=== PATIENT | female | born 1980 | race Caucasian/White ===

== ENCOUNTER 2016-05-08 01:28 | Emergency (ER) | payer SELFPAY ==
[2016-05-08 01:34] VITALS: BP 112/71
[2016-05-08] MEDS ORDERED: DIPHENHYDRAMINE HCL 50 MG/ML VIAL IV ONE (03:00)
[2016-05-08] MEDS ORDERED: NORMAL SALINE 1000 ML 1,000 ML IV ONE (03:00)
[2016-05-08] MEDS ORDERED: KETOROLAC TROMETHAMINE INJ/PF 30 MG/1 ML SDV IV ONE (03:00)
[2016-05-08] MEDS ORDERED: METHOCARBAMOL INJ/PF 1000 MG/10 ML SDV IV ONE (03:00)
[2016-05-08] MEDS ORDERED: METOCLOPRAMIDE HCL INJ/PF 10 MG/2 ML SDV IV ONE (03:00)
--- NOTE | 2016-05-08 03:02 | ER Document Report ---
ED Headache - General Chief Complaint: Headache >24 hrs old Stated Complaint: HEADACHE Time seen by provider: 03:01 Notes: Patient is a 35-year-old female that comes emergency department for chief complaint of a migraine that is present for about 5 days, she states that she's been taking Excedrin Migraine with limited success. Patient states she does have a history of migraines and has had them more frequently over the past several months, states this headache is consistent with that, states she also gets tension headaches. She reports some pain in the right side of her neck. She denies injury, fever. She states she vomited once earlier, has light sensitivity and sound sensitivity. She is currently on her menstrual cycle and started this about 4 days ago. TRAVEL OUTSIDE OF THE [place] IN LAST 30 DAYS: No - Related Data Allergies/Adverse Reactions: acetaminophen [From Vicodin] Allergy (Verified 08/24/15 21:45) codeine [Codeine] Allergy (Verified 08/24/15 21:45) hydrocodone bitartrate [From Vicodin] Allergy (Verified 08/24/15 21:45) Penicillins Allergy (Verified 08/24/15 21:45) Past Medical History - General Information source: Patient - Social History Smoking Status: Current Every Day Smoker Chew tobacco use (# tins/day): No Frequency of alcohol use: None Drug Abuse: None Lives with: Family Family History: CAD - sister of [place] at age 50 y.o. Patient has suicidal ideation: No Patient has homicidal ideation: No - Past Medical History Cardiac Medical History: Reports: Hx Coronary Artery Disease, Hx Heart Attack - x3, Hx Hypercholesterolemia, Hx Hypertension Pulmonary Medical History: Reports: Hx Bronchitis Neurological Medical History: Reports: Hx Cerebrovascular Accident - according to patient small stroke, Hx Migraine Renal/ Medical History: Reports: Hx Ectopic . Denies: Hx Peritoneal Dialysis Psychiatric Medical History: Reports: Hx Anxiety, Hx Depression Past Surgical History: Reports: Hx Gynecologic Surgery - left salpingo- Oophrectomy - Immunizations Immunizations up to date: Yes Hx Diphtheria, Pertussis, Tetanus Vaccination: Yes - UTD Review of Systems - Review of Systems Constitutional: No symptoms reported EENT: No symptoms reported Cardiovascular: No symptoms reported Respiratory: No symptoms reported Gastrointestinal: No symptoms reported Genitourinary: No symptoms reported Female Genitourinary: No symptoms reported Musculoskeletal: See HPI Skin: No symptoms reported Hematologic/Lymphatic: No symptoms reported Neurological/Psychological: See HPI Physical Exam - Vital signs Vitals: Temp Pulse Resp BP Pulse Ox 97.7 F 98 16 112/71 100 05/08/16 01:32 05/08/16 01:32 05/08/16 01:32 05/08/16 01:32 05/08/16 01:32 Interpretation: Normal - General General appearance: Anxious In distress: Mild - Patient wearing sunglasses, squinting her eyes, appears to be uncomfortable - HEENT Head: Normocephalic, Atraumatic Eyes: Normal Pupils: PERRL - Respiratory Respiratory status: No respiratory distress Chest status: Nontender Breath sounds: Normal. No: Decreased air movement, Wheezing Chest palpation: Normal - Cardiovascular Rhythm: Regular. No: Tachycardia Heart sounds: Normal auscultation, S1 appreciated, S2 appreciated Murmur: No - Abdominal Inspection: Normal Distension: No distension Bowel sounds: Normal Tenderness: Nontender. No: Tender, Guarding Organomegaly: No organomegaly - Back Back: Tender - There is tenderness in the paracervical muscles on the right side extending into the trapezius muscle, normal flexion and extension, normal range of motion, normal upper and lower extremity range of motion, normal distal neurovascular exam - Extremities General upper extremity: Normal inspection, Nontender, Normal color, Normal ROM , Normal temperature General lower extremity: Normal inspection, Nontender, Normal color, Normal ROM , Normal temperature, Normal weight bearing. No: Rodri's sign - Neurological Neuro grossly intact: Yes Cognition: Normal Orientation: AAOx4 [place] Coma Scale Eye Opening: Spontaneous Luke Coma Scale Verbal: Oriented [place] Coma Scale Motor: Obeys Commands Luke Coma Scale Total: 15 Speech: Normal Motor strength normal: LUE, RUE, LLE, RLE Sensory: Normal - Psychological Associated symptoms: Normal affect, Normal mood - Skin Skin Temperature: Warm Skin Moisture: Dry Skin Color: Normal Course - Re-evaluation Re-evalutation: Normal neurological exam, some tenderness in the paracervical muscles and trapezius muscles on the right side on initial exam, however after medications, all symptoms completely resolved, patient states her headache completely resolved, she states she just feels sleepy and she wants to go home. No concerning neurological signs, complete resolution of headache, suspect patient has a tension headache with triggered migraine. Discussed primary care follow- up, home medications, return precautions, patient states understanding and agreement. Patient has a ride home. - Vital Signs Vital signs: Temp Pulse Resp BP Pulse Ox 97.7 F 98 16 112/71 100 05/08/16 01:32 05/08/16 01:32 05/08/16 01:32 05/08/16 01:32 05/08/16 01:32 Discharge - Discharge Clinical Impression: Headache Qualifiers: Headache type: unspecified Headache chronicity pattern: acute headache Intractability: not intractable Qualified Code(s): R51 - Headache Condition: Stable Disposition: HOME, SELF-CARE Additional Instructions: Examination and symptoms, along with response to treatment, are most consistent with a tension headache that triggered a migraine. Apply heat and do gentle stretches to your left neck/cervical/trapezius muscles. Take the Robaxin muscle relaxer as prescribed. Take the Fioricet if needed for headache. Follow-up with primary care for additional management. Return to the emergency department for any concerning symptoms. Prescriptions: Butalb/Acetaminophen/Caffeine [Fioricet (50-325-40 mg) Tablet] 1 tab PO Q4HP PRN #30 tab PRN Reason: Methocarbamol [Robaxin 750 mg Tablet] 750 mg PO Q6 #20 tablet
== END 2016-05-08 05:30 | disposition home or self-care (01) ==
LOC: ER 01:28
DX: R51 Headache (principal); H53.149 Visual discomfort, unspecified; R11.10 Vomiting, unspecified; I25.10 Atherosclerotic heart disease of native coronary artery without angina pectoris; I25.2 Old myocardial infarction; I10 Essential (primary) hypertension; Z86.73 Personal history of transient ischemic attack (TIA), and cerebral infarction without residual deficits; Z88.6 Allergy status to analgesic agent; Z88.5 Allergy status to narcotic agent; Z88.0 Allergy status to penicillin
CPT/HCPCS: 99283; 96374; 96375; J1200; J2800; J1885; J2765

== ENCOUNTER 2016-08-01 23:21 | Emergency (ER) | payer SELFPAY ==
[2016-08-01 23:30] VITALS: BP 95/68
--- NOTE | 2016-08-02 17:47 | EKG REPORT ---
SEVERITY:- OTHERWISE NORMAL ECG - SINUS RHYTHM LOW VOLTAGE IN FRONTAL LEADS : Confirmed by: Kp Kaplan 02-Aug-2016 17:47:16
== END 2016-08-02 00:43 | disposition left against medical advice (07) ==
LOC: ER 23:21
DX: Z53.21 Procedure and treatment not carried out due to patient leaving prior to being seen by health care provider (principal)
CPT/HCPCS: 93005; 93010

== ENCOUNTER 2016-08-03 14:52 | Emergency (ER) | payer SELFPAY ==
[2016-08-03] MEDS ORDERED: DIAZEPAM 2 MG TABLET PO ONE (15:09)
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
[2016-08-03 15:34] LABS: ABSOLUTE EOSINOPHILS # (AUTO) 0.3 10^3/uL (0.0-0.6); ABSOLUTE LYMPHOCYTES (AUTO) 3.4 10^3/uL (0.5-4.7); ABSOLUTE MONOCYTES (AUTO) 0.6 10^3/uL (0.1-1.4); ABSOLUTE NEUT (AUTO) 6.6 10^3/uL (1.7-8.2); BASOPHILS % (AUTO) 0.4 % (0-2); EOSINOPHILS % (AUTO) 2.8 % (0-6); HEMATOCRIT 38.7 % (36.0-47.0); HGB HCT DIFFERENCE 0.3; LYMPHOCYTES % (AUTO) 30.7 % (13-45); MEAN CORPUSCULAR HEMOGLOBIN 31.2 pg (27.0-33.4); MEAN CORPUSCULAR HGB CONC 33.6 g/dL (32.0-36.0); MEAN CORPUSCULAR VOLUME 93 fl (80-97); MONOCYTES % (AUTO) 5.5 % (3-13); RED BLOOD COUNT 4.17 10^6/uL (3.72-5.28); RED CELL DISTRIBUTION WIDTH 14.5 % (11.5-14.0); SEGMENTED NEUTROPHILS % (AUTO) 60.6 % (42-78); WHITE BLOOD COUNT 10.9 10^3/uL (4.0-10.5)
[2016-08-03 15:41] LABS: APPEARANCE,URINE CLEAR; BILIRUBIN,URINE NEGATIVE (NEGATIVE); GLUCOSE, URINE NEGATIVE (NEGATIVE); KETONES,URINE NEGATIVE (NEGATIVE); LEUKOCYTE ESTERASE,URINE NEGATIVE (NEGATIVE); NITRITE,URINE NEGATIVE (NEGATIVE); PROTEIN,URINE NEGATIVE (NEGATIVE); URINE SPECIFIC GRAVITY 1.004; UROBILINOGEN,URINE NEGATIVE mg/dL (<2.0)
[2016-08-03 15:52] LABS: ALANINE AMINOTRANSFERASE 21 U/L (9-52); ALBUMIN 4.6 g/dL (3.5-5.0); ALCOHOL < 10 mg/dL (NONE DETECTED); ALKALINE PHOSPHATASE 85 U/L (38-126); ANION GAP 12 (5-19); ASPARTATE AMINO TRANSFERASE 15 U/L (14-36); BILIRUBIN,DIRECT 0.3 mg/dL (0.0-0.4); BILIRUBIN,TOTAL 0.5 mg/dL (0.2-1.3); BLOOD UREA NITROGEN 8 mg/dL (7-20); CALCIUM 9.9 mg/dL (8.4-10.2); CARBON DIOXIDE 23 mmol/L (22-30); CHLORIDE 107 mmol/L (98-107); CREATININE RESULT 0.76 mg/dL (0.52-1.25); GLUCOSE 84 mg/dL (75-110); POTASSIUM 4.6 mmol/L (3.6-5.0); SODIUM 141.6 mmol/L (137-145); TOTAL PROTEIN 7.8 g/dL (6.3-8.2)
[2016-08-03 15:59] LABS: URINE BARBITURATES SCREEN NEGATIVE; URINE METHADONE SCREEN NEGATIVE; URINE OPIATES LOW NEGATIVE; URINE PHENCYCLIDINE SCREEN NEGATIVE
[2016-08-03] MEDS ORDERED: LORAZEPAM INJ 2 MG/1 ML VIAL IM ONE (16:54)
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
[2016-08-03 19:07] VITALS: BP 100/69
--- NOTE | 2016-08-04 12:55 | EKG REPORT ---
SEVERITY:- BORDERLINE ECG - SINUS RHYTHM LOW VOLTAGE THROUGHOUT BORDERLINE T ABNORMALITIES, ANT-LAT LEADS : Confirmed by: Patito Valentino MD 04-Aug-2016 12:54:50
== END 2016-08-03 19:06 | disposition home or self-care (01) ==
LOC: ER 14:52
DX: F31.81 Bipolar II disorder (principal); F41.9 Anxiety disorder, unspecified; F32.9 Major depressive disorder, single episode, unspecified; F17.200 Nicotine dependence, unspecified, uncomplicated
CPT/HCPCS: 93005; 99284; 96372; 36415; 80307 ×4; 84703; 85025; 80053; 81001; 93010; J3490; J2060

== ENCOUNTER 2016-08-07 16:57 | Emergency (ER) | payer SELFPAY ==
[2016-08-07 17:05] VITALS: BP 108/74
--- NOTE | 2016-08-07 18:42 | ER Document Report ---
ED Medical Screen (RME) - General Chief Complaint: Anxiety Stated Complaint: ANXIETY Time Seen by Provider: 08/07/16 18:26 Mode of Arrival: Ambulatory Information source: Patient Notes: This is a 35-year-old female with a history of anxiety that presents to the emergency room with worsening anxiety in the setting of her brother being sent to skilled nursing. Patient states she is gotten worse ever since she found out that her brother in law a meth lab in the house. She apparently called the police and he was arrested. The mother is been very upset with the patient. She was given some Loli which she said did not work and she has an appointment with Dr. Rivas (her psychiatrist) tomorrow at 1:30 PM TRAVEL OUTSIDE OF THE [place] IN LAST 30 DAYS: No - HPI Onset: Last week Onset/Duration: Gradual Quality of pain: No pain Severity: None Pain Level: Denies Associated Symptoms: None. denies: Chills, Fever Exacerbated by: Denies Relieved by: Denies Similar symptoms previously: Yes Recently seen / treated by doctor: Yes - Related Data Smoking: Cigarettes Frequency of alcohol use: None Drug Abuse: None Allergies/Adverse Reactions: acetaminophen [From Vicodin] Allergy (Verified 08/07/16 17:02) codeine [Codeine] Allergy (Verified 08/07/16 17:02) hydrocodone bitartrate [From Vicodin] Allergy (Verified 08/07/16 17:02) Penicillins Allergy (Verified 08/07/16 17:02) Past Medical History - General Information source: Patient - Social History Cigarette use (# per day): Yes - Per day Chew tobacco use (# tins/day): No Frequency of alcohol use: None Drug Abuse: None Lives with: Family Family history: None - Past Medical History Cardiac Medical History: Reports: Hx Coronary Artery Disease, Hx Heart Attack - x3, Hx Hypercholesterolemia, Hx Hypertension Pulmonary Medical History: Reports: Hx Bronchitis Neurological Medical History: Reports: Hx Cerebrovascular Accident - according to patient small stroke, Hx Migraine Renal/ Medical History: Reports: Hx Ectopic . Denies: Hx Peritoneal Dialysis Psychiatric Medical History: Reports: Hx Anxiety, Hx Depression Past Surgical History: Reports: Hx Gynecologic Surgery - left salpingo- Oophrectomy - Immunizations Immunizations up to date: Yes Hx Diphtheria, Pertussis, Tetanus Vaccination: Yes - UTD Review of Systems - Review of Systems Constitutional: denies: Chills, Fever EENT: No symptoms reported Cardiovascular: No symptoms reported Respiratory: No symptoms reported Gastrointestinal: No symptoms reported Genitourinary: No symptoms reported Female Genitourinary: No symptoms reported Musculoskeletal: No symptoms reported Skin: No symptoms reported Hematologic/Lymphatic: No symptoms reported Neurological/Psychological: See HPI Physical Exam - Vital signs Vitals: Temp Pulse Resp BP Pulse Ox 98.2 F 100 14 108/74 100 08/07/16 17:02 08/07/16 17:02 08/07/16 17:02 08/07/16 17:02 08/07/16 17:02 Notes: Physical exam: GENERAL:-year-old female, alert and oriented 3, tearful, no acute distress HEAD: Atraumatic, normocephalic. EYES: Pupils equal round and reactive to light, extraocular movements intact, sclera anicteric, conjunctiva are normal. ENT: TMs normal, nares patent, oropharynx clear without exudates. Moist mucous membranes. NECK: Normal range of motion, supple without lymphadenopathy or JVD. LUNGS: Breath sounds clear to auscultation bilaterally and equal. No wheezes rales or rhonchi. HEART: Regular rate and rhythm without murmurs, rubs or gallops. ABDOMEN: Soft, normoactive bowel sounds. No tenderness to palpation. No guarding, no rebound. No masses appreciated. EXTREMITIES: Normal range of motion, no pitting or edema. No clubbing or cyanosis. NEUROLOGICAL: Cranial nerves II through XII grossly intact. Normal speech, normal gait. PSYCH: tearful, no hallucinations, no delusions, not suicidal. SKIN: Warm, Dry, normal turgor, no rashes or lesions noted. Course - Vital Signs Vital signs: Temp Pulse Resp BP Pulse Ox 98.2 F 100 14 108/74 100 08/07/16 17:02 08/07/16 17:02 08/07/16 17:02 08/07/16 17:02 08/07/16 17:02 Doctor's Discharge - Discharge Clinical Impression: Anxiety Condition: Stable Disposition: HOME, SELF-CARE Instructions: Anxiety ([facility]) Additional Instructions: Diagnosis: Anxiety acutely worsened by situation You can increase her clonazepam to 1 mg every 6 hours as needed until you follow -up with Dr. Rivas. Hold for lethargy. Continue other medicines. Up is planned with Dr. Rivas tomorrow at 130. Return to the emergency room for any thoughts of wanting to hurt herself or others.
== END 2016-08-07 18:35 | disposition home or self-care (01) ==
LOC: ER 16:57
DX: F41.9 Anxiety disorder, unspecified (principal); F17.210 Nicotine dependence, cigarettes, uncomplicated; I25.10 Atherosclerotic heart disease of native coronary artery without angina pectoris; E78.00 Pure hypercholesterolemia, unspecified; I25.2 Old myocardial infarction; Z88.6 Allergy status to analgesic agent; Z88.0 Allergy status to penicillin
CPT/HCPCS: 99283

== ENCOUNTER 2016-08-19 16:30 | Emergency (ER) | payer SELFPAY ==
[2016-08-19 18:16] LABS: ABSOLUTE BASOPHILS # (AUTO) 0.1 10^3/uL (0.0-0.2); ABSOLUTE EOSINOPHILS # (AUTO) 0.3 10^3/uL (0.0-0.6); ABSOLUTE LYMPHOCYTES (AUTO) 3.5 10^3/uL (0.5-4.7); ABSOLUTE MONOCYTES (AUTO) 0.7 10^3/uL (0.1-1.4); BASOPHILS % (AUTO) 0.6 % (0-2); EOSINOPHILS % (AUTO) 3.1 % (0-6); HEMATOCRIT 40.1 % (36.0-47.0); HEMOGLOBIN 13.6 g/dL (12.0-15.5); HGB HCT DIFFERENCE 0.7; LYMPHOCYTES % (AUTO) 33.3 % (13-45); MEAN CORPUSCULAR HEMOGLOBIN 31.1 pg (27.0-33.4); MEAN CORPUSCULAR HGB CONC 33.8 g/dL (32.0-36.0); MEAN CORPUSCULAR VOLUME 92 fl (80-97); MONOCYTES % (AUTO) 6.5 % (3-13); RED BLOOD COUNT 4.36 10^6/uL (3.72-5.28); RED CELL DISTRIBUTION WIDTH 13.9 % (11.5-14.0); SEGMENTED NEUTROPHILS % (AUTO) 56.5 % (42-78); WHITE BLOOD COUNT 10.5 10^3/uL (4.0-10.5)
[2016-08-19 18:33] LABS: ALANINE AMINOTRANSFERASE 17 U/L (9-52); ALBUMIN 4.9 g/dL (3.5-5.0); ALKALINE PHOSPHATASE 72 U/L (38-126); ANION GAP 12 (5-19); ASPARTATE AMINO TRANSFERASE 15 U/L (14-36); BILIRUBIN,DIRECT 0.3 mg/dL (0.0-0.4); BILIRUBIN,TOTAL 0.4 mg/dL (0.2-1.3); BLOOD UREA NITROGEN 8 mg/dL (7-20); CALCIUM 9.9 mg/dL (8.4-10.2); CARBON DIOXIDE 26 mmol/L (22-30); CHLORIDE 104 mmol/L (98-107); CREATININE RESULT 0.88 mg/dL (0.52-1.25); GLUCOSE 84 mg/dL (75-110); POTASSIUM 4.6 mmol/L (3.6-5.0); SODIUM 142.1 mmol/L (137-145); TOTAL PROTEIN 8.3 g/dL (6.3-8.2)
[2016-08-19 18:34] LABS: ALCOHOL < 10 mg/dL (NONE DETECTED)
[2016-08-19 18:41] LABS: APPEARANCE,URINE SLIGHTLY-CLOUDY; BILIRUBIN,URINE NEGATIVE (NEGATIVE); GLUCOSE, URINE NEGATIVE (NEGATIVE); KETONES,URINE NEGATIVE (NEGATIVE); LEUKOCYTE ESTERASE,URINE NEGATIVE (NEGATIVE); NITRITE,URINE NEGATIVE (NEGATIVE); PROTEIN,URINE NEGATIVE (NEGATIVE); URINE SPECIFIC GRAVITY 1.013; UROBILINOGEN,URINE NEGATIVE mg/dL (<2.0)
[2016-08-19 18:55] LABS: URINE BARBITURATES SCREEN NEGATIVE; URINE METHADONE SCREEN NEGATIVE; URINE OPIATES LOW NEGATIVE; URINE PHENCYCLIDINE SCREEN NEGATIVE
[2016-08-19] MEDS ORDERED: DIAZEPAM 5 MG TABLET PO ONE (19:04)
--- NOTE | 2016-08-19 19:09 | ER Document Report ---
ED Psych Disorder / Suicide - General Chief Complaint: Suicidal Ideation Stated Complaint: PSYCH PROBLEM Time Seen by Provider: 08/19/16 17:49 TRAVEL OUTSIDE OF THE [place]. IN LAST 30 DAYS: No - HPI Patient complains to provider of: Suicidal ideation Onset: This morning Associated symptoms: Anxious, Depressed, Tearful Similar symptoms previously: Yes Recently seen / treated by doctor: Yes Notes: Patient is a 35-year-old female with a history of depression and anxiety, she presents to the emergency room today complaining of depression with thoughts of suicide earlier in the day, with a brief thought to overdose on medication, patient is going through a lot of stressors recently, as she filed charges against her [id number] for assaulting her, when the police came out to arrest him he found a meth lab in his bedroom, his bedroom is in the home shared by patient and her as well as her [id number], they went to court today and patient's [id number] basically sided with her [id number] , making patient feel more stressed and overwhelmed, she states that earlier in the day she was feeling suicidal for a brief period of time, that has passed but she is still feeling overwhelmed, tearful and depressed - Related Data Allergies/Adverse Reactions: Penicillins Allergy (Verified 08/19/16 16:36) Past Medical History - General Information source: Patient - Social History Smoking Status: Current Every Day Smoker Family History: CAD - sister of [place] at age 50 y.o. Patient has suicidal ideation: Yes Patient has homicidal ideation: Yes - Past Medical History Cardiac Medical History: Reports: Hx Coronary Artery Disease, Hx Heart Attack - x3, Hx Hypercholesterolemia, Hx Hypertension Pulmonary Medical History: Reports: Hx Bronchitis Neurological Medical History: Reports: Hx Cerebrovascular Accident - according to patient small stroke, Hx Migraine Renal/ Medical History: Reports: Hx Ectopic . Denies: Hx Peritoneal Dialysis Psychiatric Medical History: Reports: Hx Anxiety, Hx Depression Past Surgical History: Reports: Hx Gynecologic Surgery - left salpingo- Oophrectomy - Immunizations Immunizations up to date: Yes Hx Diphtheria, Pertussis, Tetanus Vaccination: Yes - UTD Review of Systems - Review of Systems Constitutional: No symptoms reported EENT: No symptoms reported Cardiovascular: No symptoms reported Respiratory: No symptoms reported Gastrointestinal: No symptoms reported Genitourinary: No symptoms reported Female Genitourinary: No symptoms reported Musculoskeletal: No symptoms reported Skin: No symptoms reported Hematologic/Lymphatic: No symptoms reported Neurological/Psychological: See HPI -: Yes All other systems reviewed and negative Physical Exam - Vital signs Vitals: Temp Pulse Resp BP Pulse Ox 98.0 F 76 20 97/67 L 99 08/19/16 16:36 08/19/16 16:36 08/19/16 16:36 08/19/16 16:36 08/19/16 16:36 Interpretation: Normal - General General appearance: Appears well, Alert - HEENT Head: Normocephalic, Atraumatic Eyes: Normal Pupils: PERRL - Respiratory Respiratory status: No respiratory distress Chest status: Nontender Breath sounds: Normal Chest palpation: Normal - Cardiovascular Rhythm: Regular Heart sounds: Normal auscultation Murmur: No - Abdominal Inspection: Normal Distension: No distension Bowel sounds: Normal Tenderness: Nontender Organomegaly: No organomegaly - Back Back: Normal, Nontender - Extremities General upper extremity: Normal inspection, Nontender, Normal color, Normal ROM , Normal temperature General lower extremity: Normal inspection, Nontender, Normal color, Normal ROM , Normal temperature, Normal weight bearing. No: Rodri's sign - Neurological Neuro grossly intact: Yes Cognition: Normal Orientation: AAOx4 Luke Coma Scale Eye Opening: Spontaneous Luke Coma Scale Verbal: Oriented Luke Coma Scale Motor: Obeys Commands [place] Coma Scale Total: 15 Speech: Normal Motor strength normal: LUE, RUE, LLE, RLE Sensory: Normal - Psychological Associated symptoms: Depressed, Tearful - Skin Skin Temperature: Warm Skin Moisture: Dry Skin Color: Normal Course - Re-evaluation Re-evalutation: 08/19/16 19:07 Patient with multiple recent stressors including living situation, legal sung , strife with her [id number], as well as her [id number], she is feeling more overwhelmed, depressed, tearful, with fleeting thoughts of suicide earlier in the day today, she is tearful and slightly anxious on evaluation, agreeable to staying in the emergency room overnight to be reevaluated by mental health team in the morning 08/19/16 19:30 patient is not actively suicidal at this time, therefore I do not believe that she meets criteria for involuntary commitment, she is agreeable to staying in the emergency room overnight as a voluntary patient - Vital Signs Vital signs: Temp Pulse Resp BP Pulse Ox 98.0 F 76 20 97/67 L 99 08/19/16 16:36 08/19/16 16:36 08/19/16 16:36 08/19/16 16:36 08/19/16 16:36 - Laboratory Result Diagrams: 08/19/16 18:02 08/19/16 18:02 Laboratory results interpreted by me: 08/19/16 18:02 Total Protein 8.3 H Salicylates < 1.0 L Acetaminophen < 10 L - EKG Interpretation by Id EKG shows normal: Sinus rhythm Rate: Normal Rhythm: NSR Discharge - Discharge Clinical Impression: Suicidal ideation Depression Qualifiers: Depression Type: unspecified Qualified Code(s): F32.9 - Major depressive disorder, single episode, unspecified Disposition: PSYCH HOSP/UNIT
[2016-08-19] MEDS ORDERED: NICOTINE 14 MG/24 HR PATCH.TD24 TD ONE (20:38)
--- NOTE | 2016-08-20 09:16 | ER Document Report ---
Doctor's Note Notes: 08/20/16 09:16 I have evaluated this patient this am and has no c/o at this time. Feels all of their needs are being met and physical exam is normal. Awaiting dispositon per mental health. 08/20/16 12:49 Pt evaluated by mental health. They are recommending discharge with follow-up at [facility] this week. She has klonopin at home. Pt is not suicidal or homicidal. She is comfortable with plan. Given strict return precautions.
--- NOTE | 2016-08-20 10:17 | EKG REPORT ---
SEVERITY:- BORDERLINE ECG - SINUS ARRHYTHMIA, RATE 46-66 BORDERLINE T ABNORMALITIES, ANT-LAT LEADS : Confirmed by: Pedro Robertson MD 20-Aug-2016 10:16:44
--- NOTE | 2016-08-20 11:51 | ER Document Report ---
ED Psych Disorder / Suicide - General Mode of Arrival: Ambulatory Information source: Patient, Relative, [facility] Records TRAVEL OUTSIDE OF THE [place].S. IN LAST 30 DAYS: No - HPI Suicide Risk Factors: Depressed - Patient reports depression and anxiety symptoms Situational problems related to: Parent - strained relaltionship with mother in law Normal mood: No - slightly depressed affet Associated symptoms: Depressed Recently seen / treated by doctor: Yes - [facility], Dr. Daniel Rivas <TETO VENEGAS - Last Filed: 08/20/16 12:28> <SHARON TALBOT - Last Filed: 08/20/16 12:49> - General Chief Complaint: Suicidal Ideation Stated Complaint: PSYCH PROBLEM Time Seen by Provider: 08/20/16 09:49 Notes: Patient presents as a 35 year old female due to high anxiety and stress at home. Patient was involved in reporting her brother in law for manufacturing methamphetamine. He was subsequently arrested and remains in [facility]. Patient reports a court proceeding yesterday where her mother in law was present. Her mother in law reportedly denigrated the patient in the court room which was upsetting to the patient. Patient states that her mother in law was non communicative following the court proceeding. Patient reports that she lives with her and the mother in law. ( is brother of person incarcerated). Patient states that the entire situation has been a significant stressor in her life. Patient reports that the result of the hearing was that she and her will be required to vacate the house when her brother in law is released from [facility] - reportedly any time from a few months to a few years. She presented at the ED due to anxiety. She is being seen at [facility] in [place] where she went after the court hearing. Her prescriber and her regular counselor were both gone for the day when she arrived. She was seen by a different counselor and was advised to come to the ED. She followed up and arrived here last night. Patient denies any SI/HI or plan. She states that she was not endorsing suicide ideation upon admission and she has no thoughts to hurt herself now. She states she was suffering from high anxiety. She denies hallucinations and any psychotic processes. She presents as calm, logical, cooperative with linear thinking. She states that she feels better after a night of respite. She would like to return home with her and states that she can cope with her mother in law residing in the same household. She states there will be no animosity from either alliance party. She will be recommended to discharge and return home with an existing follow up appointment on 08/22/16 at [facility] for medication management and therapy. Collateral Information: Rafiq - - [phone]. Rafiq reports that the patient was overwhelmed after the court hearing and was verbally denigrated by his mother in court and after court. Rivas reports the situation has de-escalated and the patient is welcome home with the assurance that her mother in law is in agreement that she can return to the house without conflict. Impression/Plan: Discharge patient to home with . Patient is able to verbally contract for safety. Patient continues to deny any previous or current SI or HI or plan. She denies psychosis. Patient was distressed over court proceedings related to her brother in law manufacturing methamphetamine ( allegedly). Patient denies any SA problems or diagnosis. She denies any suicide thoughts or attempts in her lifetime. She denies and aggression or assaults in her lifetime. Patient appears to struggle with depression related to the court case and her mother in law's behavior toward her. Patient's reports that she is safe and welcome to come home and he has negotiated resolution to their conflict with his mother. Patient will keep her appointment at [facility] on 08/24/16, 9AM. Patient was provided the community resource package to include mobile crisis phone numbers and instructions on their use. (TETO VENEGAS) - Related Data Allergies/Adverse Reactions: Penicillins Allergy (Verified 08/19/16 16:36) Past Medical History - General Information source: Patient - Social History Smoking Status: Current Every Day Smoker Chew tobacco use (# tins/day): No Frequency of alcohol use: None Drug Abuse: None Family History: CAD - sister of [place] at age 50 y.o. Patient has suicidal ideation: Yes Patient has homicidal ideation: Yes - Past Medical History Cardiac Medical History: Reports: Hx Coronary Artery Disease, Hx Heart Attack - x3, Hx Hypercholesterolemia, Hx Hypertension Pulmonary Medical History: Reports: Hx Bronchitis Neurological Medical History: Reports: Hx Cerebrovascular Accident - according to patient small stroke, Hx Migraine Renal/ Medical History: Reports: Hx Ectopic . Denies: Hx Peritoneal Dialysis Psychiatric Medical History: Reports: Hx Anxiety, Hx Depression Past Surgical History: Reports: Hx Gynecologic Surgery - left salpingo- Oophrectomy - Immunizations Immunizations up to date: Yes Hx Diphtheria, Pertussis, Tetanus Vaccination: Yes - UTD <TETO VENEGAS - Last Filed: 08/20/16 12:28> Review of Systems - Review of Systems Neurological/Psychological: Depression, Suicidal ideation - denies <THEOTETO - Last Filed: 08/20/16 12:28> Course - Laboratory Result Diagrams: 08/19/16 18:02 08/19/16 18:02 <LUISFIELDTETO - Last Filed: 08/20/16 12:28> - Laboratory Result Diagrams: 08/19/16 18:02 08/19/16 18:02 <SHARON TALBOT - Last Filed: 08/20/16 12:49> - Vital Signs Vital signs: Temp Pulse Resp BP Pulse Ox 98.2 F 73 20 101/70 98 08/20/16 05:44 08/20/16 05:44 08/20/16 05:44 08/20/16 05:44 08/20/16 05:44 - Laboratory Laboratory results interpreted by me: 08/19/16 18:02 Total Protein 8.3 H Salicylates < 1.0 L Acetaminophen < 10 L Discharge <THEOTETO - Last Filed: 08/20/16 12:28> <SHARON TALBOT E - Last Filed: 08/20/16 12:49> - Discharge Clinical Impression: Depression Qualifiers: Depression Type: unspecified Qualified Code(s): F32.9 - Major depressive disorder, single episode, unspecified Condition: Good Disposition: HOME, SELF-CARE Additional Instructions: Depression Your evaluation reveals that you have mental depression. While symptoms may be vague, they often include disturbance of sleep, fatigue, loss of appetite , and general loss of interest in life. While depression may be a side effect of drugs, or a reaction to a major change in your life, many cases have no known cause. If depression is acute, and related to a major loss in your life, you can expect it to clear completely with time. If you have been depressed a long time , are prone to repeated bouts of depression or low mood, or have been thinking of suicide, get help. Depression can be treated with anti-depressant medication and counselling. Long-term depression will often take a few weeks to clear, even with appropriate medication. Follow-up care is important. Contact your physician, the hospital emergency center, crisis line, or your counsellor if you are losing control or having self-destructive thoughts. Please keep your existing appointment at [facility] on August 24, 2016 @ 9 AM. If you continue to have depressive symptoms please contact mobile crisis or return to the emergency department. Referrals: [facility] [Outside] - 08/22/16 9:00 am ()
[2016-08-20 13:09] VITALS: BP 97/62
== END 2016-08-20 13:06 | disposition home or self-care (01) ==
LOC: ER 16:30
DX: F32.9 Major depressive disorder, single episode, unspecified (principal); R45.851 Suicidal ideations; F41.9 Anxiety disorder, unspecified; F17.200 Nicotine dependence, unspecified, uncomplicated; I25.10 Atherosclerotic heart disease of native coronary artery without angina pectoris; E78.00 Pure hypercholesterolemia, unspecified; I11.0 Hypertensive heart disease with heart failure; I25.2 Old myocardial infarction; Z88.0 Allergy status to penicillin; Z86.73 Personal history of transient ischemic attack (TIA), and cerebral infarction without residual deficits
CPT/HCPCS: 36415; 80053; 80307; 81001; 84703; 85025; 93005; 93010; 99284

== ENCOUNTER 2016-09-24 16:57 | Emergency (ER) | payer SELFPAY ==
[2016-09-24 17:05] VITALS: BP 98/54
[2016-09-24] MEDS ORDERED: BENZONATATE 100 MG CAPSULE PO ONE (18:03)
--- NOTE | 2016-09-24 18:03 | ER Document Report ---
ED Flu Like - General Chief Complaint: Flu Symptoms Stated Complaint: POSSIBLE FLU LIKE SYMPTOMS Time Seen by Provider: 09/24/16 17:19 Mode of Arrival: Ambulatory Information source: Patient Notes: 36-year-old female presents to ED for "flulike symptoms. She states she has had a cough runny nose congestion. States she coughs so much she cannot lay down. States she went to her primary doctor on the and they told her she had upper respiratory infection put her on some decongestants. States her cold and cough is not getting any better. TRAVEL OUTSIDE OF THE [place].S. IN LAST 30 DAYS: No - HPI Onset: Yesterday Quality of pain: Achy Severity: Severe Pain Level: 5 Associated symptoms: Body/muscle aches, Productive cough, Rhinnorhea, Sinus pain /drainage, Sore throat Similar symptoms previously: Yes Recently seen / treated by doctor: Yes - Related Data Allergies/Adverse Reactions: Penicillins Allergy (Verified 09/24/16 17:00) Past Medical History - General Information source: Patient - Social History Smoking Status: Current Every Day Smoker Cigarette use (# per day): Yes - more than ppd Chew tobacco use (# tins/day): No Smoking Education Provided: Yes - less than 2 min Frequency of alcohol use: None Drug Abuse: None Lives with: Family Family History: CAD - sister of [place] at age 50 y.o., Hyperlipidemia, Hypertension Patient has suicidal ideation: No Patient has homicidal ideation: No - Past Medical History Cardiac Medical History: Reports: Hx Coronary Artery Disease, Hx Heart Attack - x3 according to patient but no heart cath or medications, Hx Hypercholesterolemia, Hx Hypertension Pulmonary Medical History: Reports: Hx Bronchitis EENT Medical History: Reports: Nose Neurological Medical History: Reports: Hx Cerebrovascular Accident - according to patient small stroke, Hx Migraine Endocrine Medical History: Reports: None Renal/ Medical History: Reports: Hx Ectopic Malignancy Medical History: Reports: None GI Medical History: Reports: None Musculoskeltal Medical History: Reports None Skin Medical History: Reports None Psychiatric Medical History: Reports: Hx Anxiety, Hx Bipolar Disorder, Hx Depression Traumatic Medical History: Reports: None Infectious Medical History: Reports: None Past Surgical History: Reports: Hx Gynecologic Surgery - left salpingo- Oophrectomy, Hx Myringotomy - multiple ear surgeries - Immunizations Immunizations up to date: Yes Hx Diphtheria, Pertussis, Tetanus Vaccination: Yes - MOD Review of Systems - Review of Systems Constitutional: No symptoms reported EENT: Nose discharge, Sinus discharge Cardiovascular: No symptoms reported Respiratory: Cough, Sputum Gastrointestinal: No symptoms reported Genitourinary: No symptoms reported Female Genitourinary: No symptoms reported Musculoskeletal: No symptoms reported Skin: No symptoms reported Hematologic/Lymphatic: No symptoms reported Neurological/Psychological: No symptoms reported -: Yes All other systems reviewed and negative Physical Exam - Vital signs Vitals: Temp Pulse Resp BP Pulse Ox 99.4 F 100 14 98/54 L 97 09/24/16 17:01 09/24/16 17:01 09/24/16 17:01 09/24/16 17:01 09/24/16 17:01 Interpretation: Normal - General General appearance: Appears well, Alert - HEENT Head: Normocephalic, Atraumatic Eyes: Normal Pupils: PERRL Ears: Normal External canal: Normal Tympanic membrane: Other - scars to both Sinus: Frontal, Mastoid, Tenderness Nasal: Swelling Mucous membranes: Normal Pharynx: Erythema, Post nasal drainage. No: Exudate, Peritonsillar abscess, Retropharyngeal abscess, Tonsillar hypertrophy, Potential airway comprom. Neck: Normal - Respiratory Respiratory status: No respiratory distress Chest status: Nontender Breath sounds: Rales - Right lower lobe Chest palpation: Normal - Cardiovascular Rhythm: Regular Heart sounds: Normal auscultation Murmur: No - Abdominal Inspection: Normal Distension: No distension Bowel sounds: Normal Tenderness: Nontender Organomegaly: No organomegaly - Back Back: Normal, Nontender - Extremities General upper extremity: Normal inspection, Nontender, Normal color, Normal ROM , Normal temperature General lower extremity: Normal inspection, Nontender, Normal color, Normal ROM , Normal temperature, Normal weight bearing. No: Rodri's sign - Neurological Neuro grossly intact: Yes Cognition: Normal Orientation: AAOx4 Luke Coma Scale Eye Opening: Spontaneous Luke Coma Scale Verbal: Oriented Luke Coma Scale Motor: Obeys Commands [place] Coma Scale Total: 15 Speech: Normal Motor strength normal: LUE, RUE, LLE, RLE Sensory: Normal - Psychological Associated symptoms: Normal affect, Normal mood - Skin Skin Temperature: Warm Skin Moisture: Dry Skin Color: Normal Course - Re-evaluation Re-evalutation: 09/24/16 21:03 Patient was treated with azithromycin due to the length of her cough and the fact that she is a heavy smoker with some crackles in the right base. - Vital Signs Vital signs: Temp Pulse Resp BP Pulse Ox 99.4 F 100 14 98/54 L 97 09/24/16 17:01 09/24/16 17:01 09/24/16 17:01 09/24/16 17:01 09/24/16 17:01 - Diagnostic Test Radiology reviewed: Image reviewed, Reports reviewed Discharge - Discharge Clinical Impression: Cough URI (upper respiratory infection) Qualifiers: URI type: unspecified URI Qualified Code(s): J06.9 - Acute upper respiratory infection, unspecified Condition: Stable Disposition: HOME, SELF-CARE Instructions: Family Physicians / Practices Additional Instructions: UPPER RESPIRATORY ILLNESS: You have a viral infection of the respiratory passages -- a "cold." This common infection causes nasal congestion, drainage, and often sore throat and cough. It is highly contagious. The disease usually lasts about 10 to 14 days. There is no "cure" for the viral infection -- it must run its course. If there is a complication, such as bacterial infection in the nose, sinuses, middle ear, or bronchial tubes, antibiotics may be required. The antibiotics won't affect the virus. Drink plenty of fluids. A humidifier may help. An expectorant medication or decongestant may make you more comfortable. Use acetaminophen or ibuprofen for fever or aches. See the doctor if fever persists over two days, if there is any significant worsening of your symptoms, or if you simply fail to improve as expected. Azithromycin Azithromycin (Zithromax) is a broad spectrum antibiotic in the same class as erythromycin. It can treat a variety of bacterial infections, but is most frequently used for respiratory infections. Azithromycin is extremely long-lasting. It accumulates in body tissues and continues to kill bacteria for many days. In order to improve absorption, Azithromycin should be taken at least one hour before or two hours after a meal. It does not have the same strong tendency to upset the stomach as erythromycin and is usually very well tolerated. Patients who have had a rash or other true allergic reactions to erythromycin should not take this medication. Call if you develop gastrointestinal distress, severe diarrhea, rash, hives, itching, or shortness of breath. COUGH-SUPPRESSANT & EXPECTORANT MEDICATION: You are to use a cough medication as needed for relief of symptoms. This medicine is a combination of an expectorant (to make the mucous thinner and more easily "coughed up") and a cough suppressant (to reduce the frequency of coughing). The cough-suppressant medicine is related to narcotics. You may experience mild nausea and sleepiness. Some patients who are very sensitive to narcotics may have stomach pain from this medicine. Taking the medicine with food reduces these side effects. Do not drive or work with machinery until you know how this medicine affects you. The expectorant should have no side effects. Iodine-containing expectorants (such as organidin) should not be taken by persons with active thyroid disease unless approved by your doctor. Call the doctor if you develop shortness of breath, hives, rash, itching, lightheadedness, or severe nausea and vomiting. SMOKING: If you smoke, you should stop smoking. The tar and chemicals in cigarette smoke are harmful. Smoking has been shown to cause: emphysema chronic bronchitis lung cancer mouth and throat cancer stomach and pancreas cancer premature aging defects In addition, smoking increases ear and lung infections in children of smokers. FOLLOW-UP CARE: If you have been referred to a physician for follow-up care, call the physician s office for an appointment as you were instructed or within the next two days. If you experience worsening or a significant change in your symptoms, notify the physician immediately or return to the Emergency Department at any time for re-evaluation. Prescriptions: Benzonatate [Tessalon Perles 100 mg Capsule] 100 mg PO Q8HP PRN #14 capsule PRN Reason: Azithromycin [Zithromax 250 mg Tablet] 250 mg PO ASDIR PRN #6 tablet PRN Reason: Forms: Smoking Cessation Education
--- NOTE | 2016-09-24 18:19 | RADIOLOGY REPORT (SQ) ---
EXAM DESCRIPTION: CHEST PA/LAT COMPLETED DATE/TIME: 09/24/2016 6:11 pm REASON FOR STUDY: cough congestion COMPARISON: 03/09/2015 EXAM PARAMETERS: NUMBER OF VIEWS: two views TECHNIQUE: Digital Frontal and Lateral radiographic views of the chest acquired. RADIATION DOSE: NA LIMITATIONS: none FINDINGS: LUNGS AND PLEURA: No opacities, masses or pneumothorax. No pleural effusion. MEDIASTINUM AND HILAR STRUCTURES: No masses or contour abnormalities. HEART AND VASCULAR STRUCTURES: Heart normal size. No evidence for failure. BONES: No acute findings. HARDWARE: None in the chest. OTHER: No other significant finding. IMPRESSION: NO SIGNIFICANT RADIOGRAPHIC FINDING IN THE CHEST. TECHNICAL DOCUMENTATION: JOB ID: [id number] [employer]- All Rights Reserved
== END 2016-09-24 19:03 | disposition home or self-care (01) ==
LOC: ER 16:57 → EEVIPCON 16:57 → ER 19:03
DX: J06.9 Acute upper respiratory infection, unspecified (principal); F17.210 Nicotine dependence, cigarettes, uncomplicated; I25.10 Atherosclerotic heart disease of native coronary artery without angina pectoris; E78.00 Pure hypercholesterolemia, unspecified; I10 Essential (primary) hypertension; I25.2 Old myocardial infarction; Z88.0 Allergy status to penicillin
CPT/HCPCS: 71020; 99283

== ENCOUNTER 2016-11-10 15:55 | Emergency (ER) | payer SELFPAY ==
[2016-11-10 16:09] VITALS: BP 97/55
[2016-11-10] MEDS ORDERED: DIPH/PERTUSS(ACELL)/TETANUS VAC/PF 0.5 ML SYR (>=10YO) IM ONE (16:12)
[2016-11-10] MEDS ORDERED: IBUPROFEN 600 MG TABLET PO ONE (16:13)
--- NOTE | 2016-11-10 16:13 | ER Document Report ---
ED General - General Chief Complaint: Laceration Stated Complaint: LACERATION TO LEFT FOREARM Time Seen by Provider: 11/10/16 16:11 Mode of Arrival: Ambulatory Information source: Patient Notes: 36 yr old female presents with complaints of left forearm abrasion. Pt denies any fevers or chills, notes she fell and hit a flower pot. Pt unsure of tetanus status. TRAVEL OUTSIDE OF THE [place] IN LAST 30 DAYS: No - HPI Onset: Just prior to arrival Onset/Duration: Sudden Quality of pain: Achy Severity: Mild Pain Level: 1 Associated symptoms: None Exacerbated by: Denies Relieved by: Denies Similar symptoms previously: No Recently seen / treated by doctor: No - Related Data Allergies/Adverse Reactions: Penicillins Allergy (Verified 11/10/16 16:07) Past Medical History - Social History Smoking Status: Current Every Day Smoker Cigarette use (# per day): Yes Chew tobacco use (# tins/day): No Smoking Education Provided: No Frequency of alcohol use: None Drug Abuse: None Family History: CAD - sister of [place] at age 50 y.o., Hyperlipidemia, Hypertension - Past Medical History Cardiac Medical History: Reports: Hx Coronary Artery Disease, Hx Heart Attack - x3 according to patient but no heart cath or medications, Hx Hypercholesterolemia, Hx Hypertension Pulmonary Medical History: Reports: Hx Bronchitis Neurological Medical History: Reports: Hx Cerebrovascular Accident - according to patient small stroke, Hx Migraine Renal/ Medical History: Reports: Hx Ectopic . Denies: Hx Peritoneal Dialysis Psychiatric Medical History: Reports: Hx Anxiety, Hx Bipolar Disorder, Hx Depression Past Surgical History: Reports: Hx Gynecologic Surgery - left salpingo- Oophrectomy, Hx Myringotomy - multiple ear surgeries - Immunizations Immunizations up to date: Yes Hx Diphtheria, Pertussis, Tetanus Vaccination: Yes - UTD Review of Systems - Review of Systems Notes: REVIEW OF SYSTEMS: CONSTITUTIONAL : Denies fever, chills, or sweats. Denies recent illness. EENT: Denies eye, ear, throat, or mouth pain or symptoms. Denies nasal or sinus congestion or discharge. Denies throat, tongue, or mouth swelling or difficulty swallowing. CARDIOVASCULAR: Denies chest pain. Denies palpitations or racing or irregular heart beat. Denies ankle edema. RESPIRATORY: Denies cough, cold, or chest congestion. Denies shortness of breath, difficulty breathing, or wheezing. GASTROINTESTINAL: Denies abdominal pain or distention. Denies nausea, vomiting , or diarrhea. Denies blood in vomitus, stools, or per rectum. Denies black, tarry stools. Denies constipation. GENITOURINARY: Denies difficulty urinating, painful urination, burning, frequency, blood in urine, or discharge. FEMALE GENITOURINARY: Denies vaginal bleeding, heavy or abnormal periods, irregular periods. Denies vaginal discharge or odor. MUSCULOSKELETAL: Denies back or neck pain or stiffness. Denies joint pain or swelling. SKIN: abrasion of forearm HEMATOLOGIC : Denies easy bruising or bleeding. LYMPHATIC: Denies swollen, enlarged glands. NEUROLOGICAL: Denies confusion or altered mental status. Denies passing out or loss of consciousness. Denies dizziness or lightheadedness. Denies headache. Denies weakness or paralysis or loss of use of either side. Denies problems with gait or speech. Denies sensory loss, numbness, or tingling. Denies seizures. PSYCHIATRIC: Denies anxiety or stress. Denies depression, suicidal ideation, or homicidal ideation. ALL OTHER SYSTEMS REVIEWED AND NEGATIVE. PHYSICAL EXAMINATION: GENERAL: Well-appearing, well-nourished and in no acute distress. HEAD: Atraumatic, normocephalic. EYES: Pupils equal round and reactive to light, extraocular movements intact, conjunctiva are normal. ENT: Nares patent, oropharynx clear without exudates. Moist mucous membranes. NECK: Normal range of motion, supple without lymphadenopathy LUNGS: Breath sounds clear to auscultation bilaterally and equal. No wheezes rales or rhonchi. HEART: Regular rate and rhythm without murmurs ABDOMEN: Soft, nontender, nondistended abdomen. No guarding, no rebound. No masses appreciated. Female : deferred Musculoskeletal: Normal range of motion, no pitting or edema. No cyanosis. NEUROLOGICAL: Cranial nerves grossly intact. Normal speech, normal gait. Normal sensory, motor exams PSYCH: Normal mood, normal affect. SKIN: superifical abrasion 6 cm, no contamination , full rom of the finger Dictation was performed using [employer] voice recognition software Physical Exam - Vital signs Vitals: Temp Pulse Resp BP Pulse Ox 98.3 F 85 18 97/55 L 96 11/10/16 16:08 11/10/16 16:08 11/10/16 16:08 11/10/16 16:08 11/10/16 16:08 Course - Re-evaluation Re-evalutation: 11/10/16 16:20 Abrasion noted cleansed extensively dressing placed otherwise patient looks well is in no distress will be discharged home After performing a Medical Screening Examination, I estimate there is LOW risk for OPEN FRACTURE, COMPARTMENT SYNDROME, TENDON RUPTURE, ACUTE NEUROVASCULAR INJURY, or RETAINED FOREIGN BODY, thus I consider the discharge disposition reasonable. Also, there is no evidence or peritonitis, sepsis, or toxicity. I have reevaluated this patient multiple times and no significant life threatening changes are noted. The patient and I have discussed the diagnosis and risks, and we agree with discharging home with close follow-up with the understanding that symptoms and presentations can change. We also discussed returning to the Emergency Department immediately if new or worsening symptoms occur. We have discussed the symptoms which are most concerning (e.g., changing or worsening pain, fever, numbness, weakness, cool or painful digits) that necessitate immediate return. - Vital Signs Vital signs: Temp Pulse Resp BP Pulse Ox 98.3 F 85 18 97/55 L 96 11/10/16 16:08 11/10/16 16:08 11/10/16 16:08 11/10/16 16:08 11/10/16 16:08 Discharge - Discharge Clinical Impression: Abrasion of left forearm Qualifiers: Encounter type: initial encounter Qualified Code(s): S50.812A - Abrasion of left forearm, initial encounter Condition: Stable Disposition: HOME, SELF-CARE Instructions: Antibiotic Ointment Protection ([facility]), Laceration Care ([facility]), Soap Cleansing ([facility]) Additional Instructions: Follow up with your physician tomorrow for further care or return to the ED IMMEDIATELY if symptoms worsen or new concerns occur. If you cannot afford to follow up with your primary care physician a list of low cost clinics have been provided at the end of your discharge papers as well.
== END 2016-11-10 16:36 | disposition home or self-care (01) ==
LOC: ER 15:55
DX: S50.812A Abrasion of left forearm, initial encounter (principal); F17.210 Nicotine dependence, cigarettes, uncomplicated; W18.30XA Fall on same level, unspecified, initial encounter; E78.00 Pure hypercholesterolemia, unspecified; I10 Essential (primary) hypertension; I25.10 Atherosclerotic heart disease of native coronary artery without angina pectoris; Z88.0 Allergy status to penicillin; I25.2 Old myocardial infarction; Z23 Encounter for immunization
CPT/HCPCS: 90471; 90715; 99282

== ENCOUNTER → 2016-11-12 | Outpatient (CLI) | payer OTHER ==
[2016-11-12 15:09] LABS: ABSOLUTE BASOPHILS # (AUTO) 0.1 10^3/uL (0.0-0.2); ABSOLUTE EOSINOPHILS # (AUTO) 0.3 10^3/uL (0.0-0.6); ABSOLUTE MONOCYTES (AUTO) 0.6 10^3/uL (0.1-1.4); ABSOLUTE NEUT (AUTO) 6.9 10^3/uL (1.7-8.2); BASOPHILS % (AUTO) 0.6 % (0-2); EOSINOPHILS % (AUTO) 3.2 % (0-6); HEMATOCRIT 35.5 % (36.0-47.0); HEMOGLOBIN 12.5 g/dL (12.0-15.5); LYMPHOCYTES % (AUTO) 27.6 % (13-45); MEAN CORPUSCULAR HGB CONC 35.1 g/dL (32.0-36.0); MEAN CORPUSCULAR VOLUME 88 fl (80-97); MONOCYTES % (AUTO) 5.7 % (3-13); RED BLOOD COUNT 4.02 10^6/uL (3.72-5.28); RED CELL DISTRIBUTION WIDTH 14.6 % (11.5-14.0); SEGMENTED NEUTROPHILS % (AUTO) 62.9 % (42-78); WHITE BLOOD COUNT 10.9 10^3/uL (4.0-10.5)
[2016-11-12 15:34] LABS: ALANINE AMINOTRANSFERASE 17 U/L (9-52); ALBUMIN 4.3 g/dL (3.5-5.0); ALKALINE PHOSPHATASE 73 U/L (38-126); ANION GAP 9 (5-19); ASPARTATE AMINO TRANSFERASE 14 U/L (14-36); BILIRUBIN,DIRECT 0.4 mg/dL (0.0-0.4); BILIRUBIN,TOTAL 0.4 mg/dL (0.2-1.3); BLOOD UREA NITROGEN 9 mg/dL (7-20); CALCIUM 9.5 mg/dL (8.4-10.2); CARBON DIOXIDE 26 mmol/L (22-30); CHLORIDE 105 mmol/L (98-107); CHOLESTEROL 212.15 mg/dL (0-200); Direct HDL 51 mg/dL (>40); GLUCOSE 91 mg/dL (75-110); POTASSIUM 4.3 mmol/L (3.6-5.0); SODIUM 139.7 mmol/L (137-145); TOTAL PROTEIN 7.1 g/dL (6.3-8.2); TRIGLYCERIDES 171 mg/dL (<150)
[2016-11-12 15:45] LABS: DIRECT LDL 148 mg/dL (<100)
[2016-11-12 15:46] LABS: VLDL CHOLESTEROL 34.2 mg/dL (10-31)
== END ==
LOC: CCC 14:29
DX: J06.9 Acute upper respiratory infection, unspecified (principal)
CPT/HCPCS: 36415; 80053; 80061; 83036; 84443; 85025

== ENCOUNTER 2017-01-27 19:21 | Emergency (ER) | payer OTHER ==
[2017-01-27 19:39] VITALS: BP 103/65
== END 2017-01-27 22:20 | disposition left against medical advice (07) ==
LOC: ER 19:21
DX: Z53.21 Procedure and treatment not carried out due to patient leaving prior to being seen by health care provider (principal)

== ENCOUNTER 2017-02-06 08:41 | Emergency (ER) | payer SELFPAY ==
[2017-02-06] MEDS ORDERED: MINERAL OIL ENEMA 133 ML PR ONE (09:21)
[2017-02-06] MEDS ORDERED: ONDANSETRON 4 MG TAB.RAPDIS PO ONE (09:21)
--- NOTE | 2017-02-06 09:22 | ER Document Report ---
ED GI/ - General Chief Complaint: Constipation Stated Complaint: RECTAL BLEEDING Time Seen by Provider: 02/06/17 09:06 Notes: Patient is a 36 year old female who presents to the ED complaining of constipation with firm BM this am with BRBPR. Patient states she noticed it on the toilet paper when she wiped. Denies lightheadedness, dizzy. Admits to mild nausea without vomiting. Admits to bloating but no focal abdominal pain. Tolerating PO without difficulty. Has a history of constipation over the past three years but has never discussed it with her [facility] at [facility]. TRAVEL OUTSIDE OF THE [place] IN LAST 30 DAYS: No - Related Data Allergies/Adverse Reactions: Penicillins Allergy (Verified 02/06/17 08:41) Past Medical History - Social History Smoking Status: Current Every Day Smoker Family History: CAD - sister of [place] at age 50 y.o., Hyperlipidemia, Hypertension - Past Medical History Cardiac Medical History: Reports: Hx Coronary Artery Disease, Hx Heart Attack - x3 according to patient but no heart cath or medications, Hx Hypercholesterolemia, Hx Hypertension Pulmonary Medical History: Reports: Hx Bronchitis Neurological Medical History: Reports: Hx Cerebrovascular Accident - according to patient small stroke, Hx Migraine Renal/ Medical History: Reports: Hx Ectopic . Denies: Hx Peritoneal Dialysis Psychiatric Medical History: Reports: Hx Anxiety, Hx Bipolar Disorder, Hx Depression Past Surgical History: Reports: Hx Gynecologic Surgery - left salpingo- Oophrectomy, Hx Myringotomy - multiple ear surgeries - Immunizations Immunizations up to date: Yes Hx Diphtheria, Pertussis, Tetanus Vaccination: Yes - UTD Physical Exam - Vital signs Vitals: Temp Pulse Resp BP Pulse Ox 98.5 F 88 14 105/72 100 02/06/17 08:45 02/06/17 08:45 02/06/17 08:45 02/06/17 08:45 02/06/17 08:45 Course - Re-evaluation Re-evalutation: 02/06/17 12:28 Presentation of a very well-appearing woman in no acute distress. Abdominal exam is completely benign without any focal right lower quadrant or right upper quadrant abdominal tenderness. Patient is tolerating oral intake without difficulty and does not appear clinically dehydrated on examination. I do not suspect an acute appendicitis, Meckel's diverticulum, or intussusception based on exam, vitals and history. Patient provides a history consistent with constipation. Patient will be started on MiraLAX at increasing doses and recommended to follow closely with their primary panel beater. Return precautions have been discussed at length with the patient and family - Vital Signs Vital signs: Temp Pulse Resp BP Pulse Ox 98.5 F 88 14 105/72 100 02/06/17 08:45 02/06/17 08:45 02/06/17 08:45 02/06/17 08:45 02/06/17 08:45 Discharge - Discharge Clinical Impression: Constipation Qualifiers: Constipation type: chronic idiopathic constipation Qualified Code(s): K59.04 - Chronic idiopathic constipation Condition: Good Disposition: HOME, SELF-CARE Additional Instructions: ABDOMINAL PAIN: There are many causes of abdominal pain. Pain can mean a serious problem requiring surgery (such as appendicitis). It can also be an innocent problem that goes away on its own (such as a viral infection). Often, time must pass to determine the cause of pain. The physician does not feel that hospitalization is necessary, at present. Things may change within the next 24 hours. Call the doctor or come back for re- examination if any problems occur, such as: (1) Pain that becomes more severe, steady, or becomes concentrated in one specific area. Also, pain that is more severe with movement or coughing. (2) Vomiting that persists or becomes more frequent. (3) Blood in the vomitus, urine, or bowel movements. Blood in the stool may have a tarry or black appearance. (4) Shaking chills or fever greater than 100 degrees F. (5) The abdomen becomes more distended or swollen. (6) Bowel movements cease. (7) Failure to improve as expected. NORMAL EXAM AND WORKUP: At this time, your examination and workup show no significant abnormality. No significant abnormal physical findings are noted. All laboratory, EKG, and imaging (x-ray, CT scans, ultrasound) studies that were ordered show no significant abnormality. Although your examination and all studies that were ordered showed no significant abnormal finding, there are no examinations and no studies that are 100% accurate. There is always the possibility that some abnormality could exist and not be detected with physical examination or within the limits and capabilities of laboratory and other studies. You should return or follow up as you were instructed on your visit today for further evaluation if your symptoms do not resolve. CONSTIPATION: Constipation is a common problem. It is especially likely as you get older. Constipation is a common cause of abdominal pain, but sometimes causes no symptoms at all. Causes of constipation include certain medications, dehydration, diets, inactivity, and low-fiber intake. Rarely, it can be a symptom of underlying disease. The physician has evaluated you for this. Avoid constipation by eating a diet high in fiber, fruits, and vegetables. Drink plenty of liquids. Get regular exercise. If possible, avoid constipating medicines like narcotic pain medication. Some vitamin tablets can cause constipation. Stool softeners may be needed for difficult cases. An excellent stool softener is Konsyl which is available at [employer], and [employer]. Just add a teaspoon to a glass of pineapple or orange juice daily or twice a day if needed. Laxatives are useful for occasional constipation. You should use them only when necessary. Too-frequent use can make your bowels dependent on them. Some over the counter laxatives available without prescription are: Milk of Magnesia, 1-2 tablespoons twice a day Dulcolax, 5 mg pill or 10 mg suppository. Citrate of Magnesia, 4-5 ounces a day for a day or two For acute constipation, Fleet's Enemas and Dulcolax suppositories are helpful. Chronic, assistant terminal manager use of laxatives or enemas is not a good idea. Your bowel may become dependant on them. You do not need to have a bowel movement every day. Many people do fine with a bowel movement every three or four days. You should call your doctor or return for re-evaluation if you pass blood in the stool, or if you develop fever or increasing abdominal pain. FOLLOW-UP CARE: If you have been referred to a physician for follow-up care, call the physician s office for an appointment as you were instructed or within the next two days. If you experience worsening or a significant change in your symptoms, notify the physician immediately or return to the Emergency Department at any time for re-evaluation. Referrals: [facility] [NO LOCAL MD] - Follow up as needed
--- NOTE | 2017-02-06 10:08 | RADIOLOGY REPORT (SQ) ---
EXAM DESCRIPTION: ACUTE ABDOMEN SERIES COMPLETED DATE/TIME: 02/06/2017 10:00 am REASON FOR STUDY: constipation, nausea COMPARISON: CT abdomen pelvis 12/14/2012 Two-view chest 09/24/2016 NUMBER OF VIEWS: Three views. TECHNIQUE: Frontal chest, supine abdomen and upright abdomen radiographic images acquired. LIMITATIONS: None. FINDINGS: CHEST: Lungs clear of infiltrates. No pleural effusion or pneumothorax. Cardiac silhouet te size, louie unremarkable. FREE AIR: None. No abnormal gas collections. BOWEL GAS PATTERN: Nonobstructive pattern. No dilated loops or air fluid levels. CALCIFICATIONS: No suspicious calcifications. HARDWARE: None in the abdomen. SOFT TISSUES: No gross mass or suggestion of organomegaly. BONES: No acute fracture. No worrisome bone lesions. OTHER: No other significant finding. IMPRESSION: NO RADIOGRAPHIC EVIDENCE FOR ACUTE ABDOMINAL DISEASE. TECHNICAL DOCUMENTATION: JOB ID: [id number] [employer]- All Rights Reserved
[2017-02-06] MEDS ORDERED: MINERAL OIL 30 ML UDCUP PR ONE (11:43)
[2017-02-06 12:49] VITALS: BP 96/56
== END 2017-02-06 12:51 | disposition home or self-care (01) ==
LOC: ER 08:41
DX: K59.04 Chronic idiopathic constipation (principal); R42 Dizziness and giddiness; R11.0 Nausea; R14.0 Abdominal distension (gaseous); I25.2 Old myocardial infarction
CPT/HCPCS: 99283; 82272; 74022; S0119; J3490 ×2

== ENCOUNTER 2017-03-03 11:12 | Emergency (ER) | payer SELFPAY ==
[2017-03-03] MEDS ORDERED: IBUPROFEN 600 MG TABLET PO ONE (12:46)
--- NOTE | 2017-03-03 13:05 | ER Document Report ---
ED Extremity Problem, Upper - General Chief Complaint: Shoulder Pain Stated Complaint: SHOULDER PAIN Time Seen by Provider: 03/03/17 12:34 Mode of Arrival: Ambulatory Information source: Patient Notes: 36-year-old female presented ED for left shoulder and armpit pain for 2 weeks. She states she fell on the ice and is been experiencing pain ever since then. She denies any follow-up with the primary doctors states this is the first time she has come to see somebody the reason she came is because [id number] medicines do not seem to have helped. She is alert and oriented speaking was of full sentences respirations even unlabored walks with the even steady gait and does have full range of motion to the shoulder but with pain and discomfort. TRAVEL OUTSIDE OF THE [place] IN LAST 30 DAYS: No - HPI Patient complains to provider of: Injury, Pain, Shoulder, Other - Scapular area Onset: Other - 2 weeks Recent injury: Possibly Where: Outdoors Quality of pain: Achy, Sharp Pain Level: 5 Context: Fall Exacerbated by: Movement, Exertion Relieved by: Nothing Similar symptoms previously: Yes Recently seen / treated by doctor: No - Related Data Allergies/Adverse Reactions: Penicillins Allergy (Verified 02/06/17 08:41) Past Medical History - General Information source: Patient - Social History Smoking Status: Current Every Day Smoker Cigarette use (# per day): Yes - 10 cig a day Chew tobacco use (# tins/day): No Smoking Education Provided: Yes - 4 min Frequency of alcohol use: None Drug Abuse: None Occupation: none Lives with: Family Family History: CAD - sister of [place] at age 50 y.o., Hyperlipidemia, Hypertension Patient has suicidal ideation: No Patient has homicidal ideation: No - Past Medical History Cardiac Medical History: Reports: Hx Coronary Artery Disease, Hx Hypercholesterolemia, Hx Hypertension Pulmonary Medical History: Reports: Hx Bronchitis EENT Medical History: Reports: None Neurological Medical History: Reports: Hx Migraine Endocrine Medical History: Reports: None Renal/ Medical History: Reports: Hx Ectopic Malignancy Medical History: Reports: None GI Medical History: Reports: Hx Irritable Bowel Musculoskeltal Medical History: Reports None Skin Medical History: Reports None Psychiatric Medical History: Reports: Hx Anxiety, Hx Bipolar Disorder, Hx Depression, Hx Post Traumatic Stress Disorder Traumatic Medical History: Reports: None Infectious Medical History: Reports: None Past Surgical History: Reports: Hx Gynecologic Surgery - left salpingo- Oophrectomy, Hx Myringotomy - multiple ear surgeries - Immunizations Immunizations up to date: Yes Hx Diphtheria, Pertussis, Tetanus Vaccination: Yes - UTD Review of Systems - Review of Systems Constitutional: No symptoms reported EENT: No symptoms reported Cardiovascular: No symptoms reported Respiratory: No symptoms reported Gastrointestinal: No symptoms reported Genitourinary: No symptoms reported Female Genitourinary: No symptoms reported Musculoskeletal: Other - Left shoulder and scapular area pain Skin: No symptoms reported Hematologic/Lymphatic: No symptoms reported Neurological/Psychological: No symptoms reported -: Yes All other systems reviewed and negative Physical Exam - Vital signs Vitals: Temp Pulse Resp BP Pulse Ox 98.0 F 88 16 99/67 L 100 03/03/17 11:32 03/03/17 11:32 03/03/17 11:32 03/03/17 11:32 03/03/17 11:32 Interpretation: Normal - General General appearance: Appears well, Alert - HEENT Head: Normocephalic, Atraumatic Eyes: Normal Pupils: PERRL - Respiratory Respiratory status: No respiratory distress Chest status: Nontender Breath sounds: Normal Chest palpation: Normal - Cardiovascular Rhythm: Regular Heart sounds: Normal auscultation Murmur: No - Abdominal Inspection: Normal Distension: No distension Bowel sounds: Normal Tenderness: Nontender Organomegaly: No organomegaly - Back Back: Normal, Nontender - Extremities General upper extremity: Normal inspection, Normal color, Normal ROM, Normal temperature General lower extremity: Normal inspection, Nontender, Normal color, Normal ROM , Normal temperature, Normal weight bearing. No: Rodri's sign Shoulder: Tender - Left shoulder and scapular area pain no bruising. No: Limited ROM - Pain with range of motion but no limits - Neurological Neuro grossly intact: Yes Cognition: Normal Orientation: AAOx4 [place] Coma Scale Eye Opening: Spontaneous Luke Coma Scale Verbal: Oriented [place] Coma Scale Motor: Obeys Commands [place] Coma Scale Total: 15 Speech: Normal Motor strength normal: LUE, RUE, LLE, RLE Sensory: Normal - Psychological Associated symptoms: Normal affect, Normal mood - Skin Skin Temperature: Warm Skin Moisture: Dry Skin Color: Normal Course - Re-evaluation Re-evalutation: 03/03/17 14:27 Patient was treated with ibuprofen for her left shoulder pain for the last week. An x-ray was completed which was negative for any acute radiological injuries. This was discussed with patient and written report given to patient. Patient was discharged home with the prescription for ibuprofen, instructions on exercises for the shoulder, instructions for ice, and a with name and number of orthopedic to follow-up with. Patient was encouraged to quit smoking. - Vital Signs Vital signs: Temp Pulse Resp BP Pulse Ox 97.7 F 71 16 95/56 L 100 03/03/17 14:30 03/03/17 14:30 03/03/17 11:32 03/03/17 14:30 03/03/17 14:30 - Diagnostic Test Radiology reviewed: Image reviewed, Reports reviewed Discharge - Discharge Clinical Impression: Shoulder injury Qualifiers: Encounter type: initial encounter Laterality: left Qualified Code(s): S49.92XA - Unspecified injury of left shoulder and upper arm, initial encounter Condition: Stable Disposition: HOME, SELF-CARE Additional Instructions: Shoulder Injury You have injured your shoulder. This usually results from stretching or tearing of the tendons during trauma. Time and protection are required in order to heal properly. Many injuries are quite disabling, and should be taken seriously. Initial treatment includes cold packs and a sling to rest the shoulder. The physician has assessed the seriousness of your injury, and has outlined a treatment plan. Understand that this treatment may change, depending on how you progress. If a re-examination was recommended, it is important that you follow up as instructed. Some shoulder injuries (such as partial tear of the rotator cuff) are only suspected after you've failed to improve. Call us if there's severe pain, numbness, or loss of function. Exercise Program for the Shoulder Since the shoulder moves in so many directions, the joint attachment is weak. Muscles provide most of the stability to the shoulder. You must exercise your shoulder to prevent painful instability or stiffening. PASSIVE - These may be begun within a few days of the injury. While standing, lean forward, allowing the arm to hang down towards the floor. Move the arm in small circles while slowly twisting your chest towards and away from the hanging arm. Do this for one minute. ACTIVE - These may be performed when the doctor gives permission. Begin with the arms at the sides. Raise the arms forward (shoulder's width apart) until they reach shoulder level. Then slowly swing both arms back until they are aiming straight out away from each other. Then bring them forward again, and finally, lower them to your sides. Repeat 20 to 30 times. As you improve, put weights in your hands for the exercise. Start with one pound, and work up to 10 pounds. Never use more than is comfortable. Athletes may work up to 30 pounds. Ice Packs Apply ice packs frequently against the painful area. Many different schedules are recommended, such as "20 minutes on, 20 minutes off" or "one hour ice, two hours rest." If you need to work, you may need to go longer between ice treatments. You should plan to have the area ice packed AT LEAST one fourth of the time. The ice should be applied over the wrap, tape, or splint, or over a layer of cloth -- not directly against the skin. Some ice bags have a built-in cloth and can be put directly on the skin. USE OF [id number] IBUPROFEN: Ibuprofen (Advil, Nuprin, Medipren, Motrin IB) is a medication for fever and pain control. In addition, it has anti- inflammatory effects which may be beneficial, especially in the treatment of injuries. It's best to take ibuprofen with food. Persons with ulcer disease or allergy to aspirin should notify their physician of this before taking ibuprofen. Ibuprofen can be given every four to six hours, for a total of four doses daily. Age Pain or fever dose Antiinflammatory dose 6-8 yr 200 mg (1 tab) 200 mg (1 tab) 9-11 yr 200 mg (1 tab) 200-400 mg (1-2 tab) 11-14 yr 200-400 mg (1-2 tab) 400 mg (2 tab) 15-adult 400 mg (2 tab) 600 mg (3 tab) FOLLOW-UP CARE: If you have been referred to a physician for follow-up care, call the physician s office for an appointment as you were instructed or within the next two days. If you experience worsening or a significant change in your symptoms, notify the physician immediately or return to the Emergency Department at any time for re-evaluation. Prescriptions: Ibuprofen 600 mg PO Q6HP PRN #14 tablet PRN Reason: Forms: Smoking Cessation Education Referrals: MIMI SOMMER MD [Primary Care Provider] - Follow up as needed PRABHU MCCORD DO [ACTIVE STAFF] - Follow up as needed
--- NOTE | 2017-03-03 13:30 | RADIOLOGY REPORT (SQ) ---
EXAM DESCRIPTION: SHOULDER LEFT 2 OR MORE VIEWS COMPLETED DATE/TIME: 03/03/2017 1:22 pm REASON FOR STUDY: pain increasing fell week ago COMPARISON: 11/16/2015 NUMBER OF VIEWS: Two views. TECHNIQUE: AP and Y-view images acquired of the left shoulder. LIMITATIONS: None. FINDINGS: MINERALIZATION: Normal. BONES: No acute fracture or dislocation. No worrisome bone lesions. JOINTS: No dislocation. VISUALIZED LUNGS AND RIBS: No pneumothorax. No rib fracture. SOFT TISSUES: No radiopaque foreign body. OTHER: No other significant finding. IMPRESSION: NEGATIVE STUDY OF THE LEFT SHOULDER. NO RADIOGRAPHIC EVIDENCE OF ACUTE INJURY. TECHNICAL DOCUMENTATION: JOB ID: [id number] [employer]- All Rights Reserved
[2017-03-03 14:31] VITALS: BP 95/56
== END 2017-03-03 14:33 | disposition home or self-care (01) ==
LOC: ER 11:12
DX: S49.92XA Unspecified injury of left shoulder and upper arm, initial encounter (principal); M25.512 Pain in left shoulder; M79.621 Pain in right upper arm; W00.0XXA Fall on same level due to ice and snow, initial encounter; I10 Essential (primary) hypertension; I25.10 Atherosclerotic heart disease of native coronary artery without angina pectoris; F17.210 Nicotine dependence, cigarettes, uncomplicated; Z71.6 Tobacco abuse counseling; Z88.0 Allergy status to penicillin
CPT/HCPCS: 99283; 99406

== ENCOUNTER 2017-06-11 10:47 | Emergency (ER) | payer SELFPAY ==
[2017-06-11 10:54] VITALS: BP 91/70
--- NOTE | 2017-06-11 11:55 | ER Document Report ---
ED Respiratory Problem - General Chief Complaint: Cold Symptoms Stated Complaint: COUGH Time Seen by Provider: 06/11/17 11:51 Notes: Patient is a 36-year-old female complaining of flulike symptoms 1 week. She complains of chest congestion, cough, runny nose, body aches, hurts to breathe. Patient has been treating symptoms with wwzx-orj-ngdlgyn NyQuil and ibuprofen. She denies any shortness of breath or chest pain other than her chest hurts when she breathes. No nausea or vomiting. TRAVEL OUTSIDE OF THE [place] IN LAST 30 DAYS: No - HPI Quality of pain: Achy Context: denies: Hx asthma, Hx CHF, Hx COPD Cough: Nonproductive Sputum amount: Scant Associated symptoms: Congestion, Cough, Headache, Hurts to breathe. denies: Bloody cough, Difficulty breathing, Fever Similar symptoms previously: No Recently seen / treated by doctor: No - Related Data Allergies/Adverse Reactions: Penicillins Allergy (Verified 06/11/17 10:50) Past Medical History - General Information source: Patient - Social History Smoking Status: Current Every Day Smoker Chew tobacco use (# tins/day): No Drug Abuse: None Lives with: Family Family History: CAD - sister of [place] at age 50 y.o., Hyperlipidemia, Hypertension Patient has suicidal ideation: No Patient has homicidal ideation: No - Past Medical History Cardiac Medical History: Reports: Hx Coronary Artery Disease, Hx Heart Attack - x3 according to patient but no heart cath or medications, Hx Hypercholesterolemia, Hx Hypertension Pulmonary Medical History: Reports: Hx Bronchitis Neurological Medical History: Reports: Hx Migraine Renal/ Medical History: Reports: Hx Ectopic . Denies: Hx Peritoneal Dialysis GI Medical History: Reports: Hx Irritable Bowel Psychiatric Medical History: Reports: Hx Anxiety, Hx Bipolar Disorder, Hx Depression, Hx Post Traumatic Stress Disorder Past Surgical History: Reports: Hx Gynecologic Surgery - left salpingo- Oophrectomy, Hx Myringotomy - multiple ear surgeries - Immunizations Immunizations up to date: Yes Hx Diphtheria, Pertussis, Tetanus Vaccination: Yes - UTD Review of Systems - Review of Systems Constitutional: No symptoms reported EENT: No symptoms reported Cardiovascular: No symptoms reported Respiratory: No symptoms reported Gastrointestinal: No symptoms reported Genitourinary: No symptoms reported Female Genitourinary: No symptoms reported Musculoskeletal: No symptoms reported Skin: No symptoms reported Hematologic/Lymphatic: No symptoms reported Neurological/Psychological: No symptoms reported Physical Exam - Vital signs Vitals: Temp Pulse Resp BP Pulse Ox 98.3 F 116 H 17 91/70 L 99 06/11/17 10:52 06/11/17 10:52 06/11/17 10:52 06/11/17 10:52 06/11/17 10:52 Interpretation: Normal - General General appearance: Appears well, Alert - HEENT Head: Normocephalic, Atraumatic Eyes: Normal Pupils: PERRL - Respiratory Respiratory status: No respiratory distress Chest status: Nontender Breath sounds: Normal Chest palpation: Normal - Cardiovascular Rhythm: Regular Heart sounds: Normal auscultation Murmur: No - Abdominal Inspection: Normal Distension: No distension Bowel sounds: Normal Tenderness: Nontender Organomegaly: No organomegaly - Back Back: Normal, Nontender - Extremities General upper extremity: Normal inspection, Nontender, Normal color, Normal ROM , Normal temperature General lower extremity: Normal inspection, Nontender, Normal color, Normal ROM , Normal temperature, Normal weight bearing. No: Rodri's sign - Neurological Neuro grossly intact: Yes Cognition: Normal Orientation: AAOx4 [place] Coma Scale Eye Opening: Spontaneous [place] Coma Scale Verbal: Oriented [place] Coma Scale Motor: Obeys Commands Luke Coma Scale Total: 15 Speech: Normal Motor strength normal: LUE, RUE, LLE, RLE Sensory: Normal - Psychological Associated symptoms: Normal affect, Normal mood - Skin Skin Temperature: Warm Skin Moisture: Dry Skin Color: Normal Course - Re-evaluation Re-evalutation: 06/11/17 11:58 History and physical are most consistent with a viral upper respiratory infection. There are no signs and symptoms of sepsis or dehydration. I estimate there is LOW risk for ACUTE CORONARY SYNDROME, RESPIRATORY FAILURE, SEPSIS OR MENINGITIS chest xray is normal. I consider the discharge disposition reasonable. I have reevaluated this patient multiple times and no significant life threatening changes are noted. Antihistamine/decongestant is recommended for symptom control. I will write for a short course of cough suppressant with Deb Nathan. Home care, primary care follow-up and ED return precautions were discussed with patient. Patient is agreeable with plan and stable for discharge - Vital Signs Vital signs: Temp Pulse Resp BP Pulse Ox 98.3 F 116 H 17 91/70 L 99 06/11/17 10:52 06/11/17 10:52 06/11/17 10:52 06/11/17 10:52 06/11/17 10:52 Discharge - Discharge Clinical Impression: URI (upper respiratory infection) Qualifiers: URI type: unspecified viral URI Qualified Code(s): J06.9 - Acute upper respiratory infection, unspecified Condition: Stable Disposition: HOME, SELF-CARE Instructions: Upper Respiratory Illness ([facility]), Viral Syndrome ([facility]), Cough Suppressant & Expectorant Medications Additional Instructions: Teresa, your chest x-ray was negative for any pneumonia or other serious illness. I recommend you take an ygks-gvs-cherzdq antihistamine/decongestant such as Dorita-D or Mucinex D for symptom control. I am prescribing a cough medication for you. Please take this as prescribed. Rest and hydrate as much as you can. Follow-up with your primary care if the symptoms persist for more than 10 days. Return to ER for any worsening Prescriptions: Benzonatate [Tessalon Perles 100 mg Capsule] 200 mg PO Q8HP PRN #40 capsule PRN Reason:
--- NOTE | 2017-06-11 12:38 | RADIOLOGY REPORT (SQ) ---
EXAM DESCRIPTION: CHEST 2 VIEWS COMPLETED DATE/TIME: 06/11/2017 12:15 pm REASON FOR STUDY: cough x 1 week COMPARISON: 09/24/2016 EXAM PARAMETERS: NUMBER OF VIEWS: two views TECHNIQUE: Digital Frontal and Lateral radiographic views of the chest acquired. RADIATION DOSE: NA LIMITATIONS: none FINDINGS: LUNGS AND PLEURA: No opacities, masses or pneumothorax. No pleural effusion. MEDIASTINUM AND HILAR STRUCTURES: No masses or contour abnormalities. HEART AND VASCULAR STRUCTURES: Heart normal size. No evidence for failure. BONES: No acute findings. HARDWARE: None in the chest. OTHER: No other significant finding. IMPRESSION: NO ACUTE RADIOGRAPHIC FINDING IN THE CHEST. TECHNICAL DOCUMENTATION: JOB ID: [id number] [employer]- All Rights Reserved Reading location - IP/workstation name: [email or web address])
== END 2017-06-11 12:52 | disposition home or self-care (01) ==
LOC: ER 10:47
DX: J06.9 Acute upper respiratory infection, unspecified (principal); B97.89 Other viral agents as the cause of diseases classified elsewhere; R05 Cough; R09.89 Other specified symptoms and signs involving the circulatory and respiratory systems; R07.1 Chest pain on breathing; R51 Headache; I10 Essential (primary) hypertension; I25.10 Atherosclerotic heart disease of native coronary artery without angina pectoris; F17.200 Nicotine dependence, unspecified, uncomplicated; Z88.0 Allergy status to penicillin; Z82.49 Family history of ischemic heart disease and other diseases of the circulatory system
CPT/HCPCS: 71046; 99283

== ENCOUNTER 2017-11-17 20:30 | Emergency (ER) | payer SELFPAY ==
[2017-11-17 21:08] VITALS: BP 98/64
== END 2017-11-17 21:48 | disposition left against medical advice (07) ==
LOC: ER 20:30
DX: Z53.21 Procedure and treatment not carried out due to patient leaving prior to being seen by health care provider (principal)

== ENCOUNTER 2017-11-29 16:28 | Emergency (ER) | payer SELFPAY ==
--- NOTE | 2017-11-29 17:19 | ER Document Report ---
HPI - HPI Patient complains to provider of: Dysuria and frequency Onset: Other - 1 week Onset/Duration: Persistent Pain Level: 5 Context: 37-year-old female with suprapubic discomfort dysuria frequency and urgency for 1 week. No flank pain nausea or vomiting. No fever. No vaginal discharge with an odor. Associated Symptoms: None Exacerbated by: Other - Urination Relieved by: Denies - ROS ROS below otherwise negative: Yes Systems Reviewed and Negative: Yes All other systems reviewed and negative - REPRODUCTIVE Reproductive: DENIES: : Past Medical History - General Information source: Patient - Social History Smoking Status: Unknown if Ever Smoked Lives with: Family Family History: CAD - sister of [place] at age 50 y.o., Hyperlipidemia, Hypertension - Past Medical History Cardiac Medical History: Reports: Hx Coronary Artery Disease, Hx Heart Attack - x3 according to patient but no heart cath or medications, Hx Hypercholesterolemia, Hx Hypertension Pulmonary Medical History: Reports: Hx Bronchitis Neurological Medical History: Reports: Hx Migraine Renal/ Medical History: Reports: Hx Ectopic . Denies: Hx Peritoneal Dialysis GI Medical History: Reports: Hx Irritable Bowel Psychiatric Medical History: Reports: Hx Anxiety, Hx Bipolar Disorder, Hx Depression, Hx Post Traumatic Stress Disorder Past Surgical History: Reports: Hx Gynecologic Surgery - left salpingo- Oophrectomy, Hx Myringotomy - multiple ear surgeries - Immunizations Immunizations up to date: Yes Hx Diphtheria, Pertussis, Tetanus Vaccination: Yes - UTD Vertical Provider Document - CONSTITUTIONAL Agree With Documented VS: Yes Exam Limitations: No Limitations - INFECTION CONTROL TRAVEL OUTSIDE OF THE [place] IN LAST 30 DAYS: No - NECK Neck: Supple - GI/ABDOMEN Gastrointestinal: Abdomen Soft, Abdomen Tender, No Organomegaly, Normal Bowel Sounds - BACK Back: Normal Inspection. negative: CVA Tenderness-Right, CVA Tenderness-Left - NEURO Level of Consciousness: Alert, Appropriate - DERM Integumentary: No Rash Course - Re-evaluation Re-evalutation: 11/29/17 Urinalysis shows evidence of urinary tract infection WBCs, RBCs and trace of bacteria. Urine culture has been sent. 11/30/17 20:51 - Vital Signs Vital signs: Temp Pulse Resp BP Pulse Ox 98.5 F 102 H 16 99/65 L 98 11/29/17 16:33 11/29/17 16:33 11/29/17 16:33 11/29/17 16:33 11/29/17 16:33 Discharge - Discharge Clinical Impression: Urinary tract infection Qualifiers: Urinary tract infection type: acute cystitis Hematuria presence: with hematuria Qualified Code(s): N30.01 - Acute cystitis with hematuria Condition: Good Disposition: HOME, SELF-CARE Instructions: Nitrofurantoin ([facility]), Urinary Tract Infection ([facility]) Additional Instructions: Plenty of fluids Take the antibiotic for 1 week Urine culture is pending Return to the emergency room for any worsening of the symptoms Prescriptions: Nitrofurantoin/Nitrofuran Mac [Macrobid 100 mg Capsule] 100 mg PO BID #14 capsule Forms: Return to Work
[2017-11-29 17:42] LABS: APPEARANCE,URINE CLOUDY; BILIRUBIN,URINE NEGATIVE (NEGATIVE); COLOR,URINE AMBER; GLUCOSE, URINE NEGATIVE (NEGATIVE); KETONES,URINE TRACE mg/dL (NEGATIVE); LEUKOCYTE ESTERASE,URINE LARGE (NEGATIVE); NITRITE,URINE NEGATIVE (NEGATIVE); PROTEIN,URINE 30 mg/dL (NEGATIVE)
[2017-11-29] MEDS ORDERED: NITROFURANTOIN MONOHYD/M-CRYST 100 MG CAPSULE PO ONE (17:48)
[2017-11-29 17:59] VITALS: BP 105/66
== END 2017-11-29 17:56 | disposition home or self-care (01) ==
LOC: ER 16:28
DX: N30.01 Acute cystitis with hematuria (principal)
CPT/HCPCS: 99283; 87086; 81025; 81001; J8499

== ENCOUNTER 2018-06-09 14:20 | Emergency (ER) | payer SELFPAY ==
[2018-06-09 14:26] VITALS: BP 98/61
[2018-06-09] MEDS ORDERED: HYDROCODONE/ACETAMINOPHEN 5-325 MG TABLET PO ONE (15:02)
--- NOTE | 2018-06-09 15:14 | RADIOLOGY REPORT (SQ) ---
EXAM DESCRIPTION: FOOT RIGHT COMPLETE COMPLETED DATE/TIME: 06/09/2018 3:05 pm REASON FOR STUDY: dropped hammer on foot COMPARISON: None. NUMBER OF VIEWS: Three views. TECHNIQUE: AP, lateral and oblique radiographic images acquired of the right foot. LIMITATIONS: None. FINDINGS: MINERALIZATION: Normal. BONES: No acute fracture or dislocation. No worrisome bone lesions. JOINTS: No effusions. SOFT TISSUES: No soft tissue swelling. No foreign body. OTHER: No other significant finding. IMPRESSION: NEGATIVE STUDY OF THE RIGHT FOOT. NO RADIOGRAPHIC EVIDENCE OF ACUTE INJURY. TECHNICAL DOCUMENTATION: JOB ID: [id number] [employer]- All Rights Reserved Reading location - IP/workstation name: [email or web address]
--- NOTE | 2018-06-09 15:14 | ER Document Report ---
HPI - HPI Patient complains to provider of: Right foot injury Time Seen by Provider: 06/09/18 14:42 Onset: This afternoon Onset/Duration: Sudden Quality of pain: Achy Pain Level: 4 Context: Patient states that she dropped hammers onto a barefoot today. Patient complains of right foot tenderness with bruising. Exacerbated by: Standing, Movement, Walking Relieved by: Denies Similar symptoms previously: No Recently seen / treated by doctor: No - ROS ROS below otherwise negative: Yes Systems Reviewed and Negative: Yes All other systems reviewed and negative - REPRODUCTIVE Reproductive: DENIES: : - MUSCULOSKELETAL Musculoskeletal: REPORTS: Extremity pain - right foot, Swelling - DERM Skin Color: Ecchymosis Skin Problems: None Past Medical History - General Information source: Patient - Social History Smoking Status: Current Every Day Smoker Smoking Education Provided: Yes Frequency of alcohol use: None Drug Abuse: None Occupation: None Lives with: Family Family History: CAD - sister of [place] at age 50 y.o., Hyperlipidemia, Hypertension Patient has suicidal ideation: No Patient has homicidal ideation: No - Past Medical History Cardiac Medical History: Reports: Hx Coronary Artery Disease, Hx Heart Attack - x3 according to patient but no heart cath or medications, Hx Hypercholesterolemia, Hx Hypertension Pulmonary Medical History: Reports: Hx Bronchitis Neurological Medical History: Reports: Hx Migraine Renal/ Medical History: Reports: Hx Ectopic . Denies: Hx Peritoneal Dialysis GI Medical History: Reports: Hx Irritable Bowel Psychiatric Medical History: Reports: Hx Anxiety, Hx Bipolar Disorder, Hx Depression - anxiety, Hx Post Traumatic Stress Disorder Past Surgical History: Reports: Hx Gynecologic Surgery - left salpingo-O ophrectomy, Hx Myringotomy - multiple ear surgeries - Immunizations Immunizations up to date: Yes Hx Diphtheria, Pertussis, Tetanus Vaccination: Yes - UTD Vertical Provider Document - CONSTITUTIONAL Agree With Documented VS: Yes Exam Limitations: No Limitations General Appearance: WD/WN, No Apparent Distress - INFECTION CONTROL TRAVEL OUTSIDE OF THE [place] IN LAST 30 DAYS: No - HEENT HEENT: Atraumatic, Normocephalic - NECK Neck: Normal Inspection - RESPIRATORY Respiratory: Breath Sounds Normal, No Respiratory Distress - CARDIOVASCULAR Cardiovascular: Regular Rate, Regular Rhythm Pulses: Normal: Dorsalis pedis - MUSCULOSKELETAL/EXTREMETIES Musculoskeletal/Extremeties: MAEW, Tender - Tenderness to right foot over the distal second third metatarsals with overlying ecchymosis and mild swelling., Edema, Eccymosis - NEURO Level of Consciousness: Awake, Alert, Appropriate Motor/Sensory: No Motor Deficit - DERM Integumentary: Warm, Dry, No Rash Course - Vital Signs Vital signs: Temp Pulse Resp BP Pulse Ox 97.8 F 103 H 18 98/61 L 96 06/09/18 14:25 06/09/18 14:25 06/09/18 14:25 06/09/18 14:25 06/09/18 14:25 - Diagnostic Test Radiology reviewed: Image reviewed, Reports reviewed Procedures - Immobilization Right Foot Pre-Proc Neuro Vasc Exam: Normal Immobilizer type: Post-op shoe Performed by: PCT Post-Proc Neuro Vasc Exam: Normal Alignment checked and good: Yes Discharge - Discharge Clinical Impression: Foot contusion Qualifiers: Encounter type: initial encounter Laterality: right Qualified Code(s): S90.31XA - Contusion of right foot, initial encounter Foot sprain Qualifiers: Encounter type: initial encounter Laterality: right Qualified Code(s): S93.601A - Unspecified sprain of right foot, initial encounter Condition: Stable Disposition: HOME, SELF-CARE Instructions: Use of Crutches ([facility]), Ice Packs ([facility]), Post-Op Shoe ([facility]), Sprain ([facility]) Additional Instructions: Return immediately for any new or worsening symptoms Followup with your primary care provider, call tomorrow to make a followup appointment Weightbearing as tolerated Follow-up with orthopedics for any persistent pain or problems Prescriptions: Naproxen [Naprosyn 250 Nmg Tablet] 1 tab PO BID #14 tablet Referrals: [facility] [Provider Group] - Follow up in 3-5 days
== END 2018-06-09 15:30 | disposition home or self-care (01) ==
LOC: ER 14:20
DX: S90.31XA Contusion of right foot, initial encounter (principal); S93.601A Unspecified sprain of right foot, initial encounter; M79.671 Pain in right foot; M79.89 Other specified soft tissue disorders; W22.8XXA Striking against or struck by other objects, initial encounter; F17.200 Nicotine dependence, unspecified, uncomplicated; I25.10 Atherosclerotic heart disease of native coronary artery without angina pectoris; I25.2 Old myocardial infarction; I10 Essential (primary) hypertension
CPT/HCPCS: 99283

== ENCOUNTER 2018-08-10 08:46 | Emergency (ER) | payer SELFPAY ==
[2018-08-10 08:54] VITALS: BP 105/59
--- NOTE | 2018-08-10 09:52 | ER Document Report ---
HPI - HPI Patient complains to provider of: uti Time Seen by Provider: 08/10/18 09:50 Onset: Other - 4 days Onset/Duration: Persistent Quality of pain: Burning Pain Level: 5 Context: Patient presents complaining of UTI symptoms with dysuria for the past 4 days. Patient denies any fever. Patient denies any flank pain nausea or vomiting. Associated Symptoms: Other - Suprapubic tenderness. denies: Fever, Vomiting Exacerbated by: Denies Relieved by: Denies Similar symptoms previously: Yes Recently seen / treated by doctor: No - ROS ROS below otherwise negative: Yes Systems Reviewed and Negative: Yes All other systems reviewed and negative - CONSTITUTIONAL Constitutional: DENIES: Fever - NEURO Neurology: DENIES: Headache, Weakness - GASTROINTESTINAL Gastrointestinal: DENIES: Nausea, Patient vomiting - URINARY Urinary: REPORTS: Dysuria, Frequency - REPRODUCTIVE Reproductive: DENIES: : - MUSCULOSKELETAL Musculoskeletal: DENIES: Back Pain - DERM Skin Color: Normal Skin Problems: None Past Medical History - General Information source: Patient - Social History Smoking Status: Current Every Day Smoker Smoking Education Provided: Yes Frequency of alcohol use: None Drug Abuse: None Occupation: None Family History: CAD - sister of [place] at age 50 y.o., Hyperlipidemia, Hypertension - Past Medical History Cardiac Medical History: Reports: Hx Coronary Artery Disease, Hx Heart Attack - x3 according to patient but no heart cath or medications, Hx Hypercholesterolemia, Hx Hypertension Pulmonary Medical History: Reports: Hx Bronchitis Neurological Medical History: Reports: Hx Migraine Renal/ Medical History: Reports: Hx Ectopic . Denies: Hx Peritoneal Dialysis GI Medical History: Reports: Hx Irritable Bowel Psychiatric Medical History: Reports: Hx Anxiety, Hx Bipolar Disorder, Hx Depression, Hx Post Traumatic Stress Disorder Past Surgical History: Reports: Hx Gynecologic Surgery - left salpingo- Oophrectomy, Hx Myringotomy - multiple ear surgeries - Immunizations Immunizations up to date: Yes Hx Diphtheria, Pertussis, Tetanus Vaccination: Yes - UTD Vertical Provider Document - CONSTITUTIONAL Agree With Documented VS: Yes Exam Limitations: No Limitations General Appearance: WD/WN, No Apparent Distress - INFECTION CONTROL TRAVEL OUTSIDE OF THE [place] IN LAST 30 DAYS: No - HEENT HEENT: Atraumatic, Normocephalic - NECK Neck: Normal Inspection, Supple - RESPIRATORY Respiratory: Breath Sounds Normal, No Respiratory Distress - CARDIOVASCULAR Cardiovascular: Regular Rate, Regular Rhythm - GI/ABDOMEN Gastrointestinal: Abdomen Soft, Abdomen Tender - suprapubic, No Organomegaly - BACK Back: Normal Inspection. negative: CVA Tenderness-Right, CVA Tenderness-Left - MUSCULOSKELETAL/EXTREMETIES Musculoskeletal/Extremeties: ELPIDIO DEMARCO - NEURO Level of Consciousness: Awake, Alert, Appropriate Motor/Sensory: No Motor Deficit - DERM Integumentary: Warm, Dry, No Rash Course - Re-evaluation Re-evalutation: 08/10/18 10:30 Patient with findings worrisome for UTI, no concern for sepsis or pyelonephritis at this time. Good return precautions discussed. - Vital Signs Vital signs: Temp Pulse Resp BP Pulse Ox 97.8 F 106 H 15 105/59 L 97 08/10/18 08:52 08/10/18 08:52 08/10/18 08:52 08/10/18 08:52 08/10/18 08:52 - Laboratory Laboratory results interpreted by me: 08/10/18 16:41 Labs- Entire Visit 08/10/18 08/10/18 08:53 08:53 Urine Color YELLOW Urine Appearance TURBID Urine pH 6.0 Ur Specific Geff 1.018 Urine Protein 100 H Urine Glucose (UA) NEGATIVE Urine Ketones NEGATIVE Urine Blood MODERATE H Urine Nitrite NEGATIVE Urine Bilirubin NEGATIVE Urine Urobilinogen NEGATIVE Ur Leukocyte Esterase MODERATE H Urine WBC (Auto) >182 Urine RBC (Auto) 81 Urine WBC Clumps MANY Squamous Epi Cells Auto 5 Urine Mucus (Auto) MOD Urine Ascorbic Acid NEGATIVE Urine HCG, Qual NEGATIVE Discharge - Discharge Clinical Impression: UTI (urinary tract infection) Qualifiers: Urinary tract infection type: site unspecified Hematuria presence: with hematuria Qualified Code(s): N39.0 - Urinary tract infection, site not specified Condition: Stable Disposition: HOME, SELF-CARE Instructions: Trimethoprim-Sulfa ([facility]), Urinary Anesthetic Agent ([facility]), Urinary Tract Infection ([facility]) Additional Instructions: Return immediately for any new or worsening symptoms Followup with your primary care provider, call tomorrow to make a followup appointment Stop smoking Prescriptions: Phenazopyridine HCl [Pyridium 200 mg Tablet] 200 mg PO TID #15 tablet Sulfamethoxazole/Trimethoprim [Bactrim Ds Tablet] 1 each PO BID #20 tablet Forms: Smoking Cessation Education Referrals: [facility] [Provider Group] - Follow up as needed
[2018-08-10 09:57] LABS: APPEARANCE,URINE TURBID; BILIRUBIN,URINE NEGATIVE (NEGATIVE); COLOR,URINE YELLOW; GLUCOSE, URINE NEGATIVE (NEGATIVE); KETONES,URINE NEGATIVE (NEGATIVE); LEUKOCYTE ESTERASE,URINE MODERATE (NEGATIVE); NITRITE,URINE NEGATIVE (NEGATIVE); PROTEIN,URINE 100 mg/dL (NEGATIVE); URINE SPECIFIC GRAVITY 1.018; UROBILINOGEN,URINE NEGATIVE mg/dL (<2.0)
== END 2018-08-10 10:35 | disposition home or self-care (01) ==
LOC: ER 08:46
DX: N39.0 Urinary tract infection, site not specified (principal); R31.9 Hematuria, unspecified; F17.200 Nicotine dependence, unspecified, uncomplicated; I25.10 Atherosclerotic heart disease of native coronary artery without angina pectoris; I10 Essential (primary) hypertension
CPT/HCPCS: 81001; 81025; 99283

== ENCOUNTER 2019-12-19 22:16 | Emergency (ER) | payer SELFPAY ==
[2019-12-19 22:26] VITALS: BP 109/72
--- NOTE | 2019-12-19 22:30 | ER Document Report ---
ED Medical Screen (RME) - General Chief Complaint: Headache Stated Complaint: MIGRAINE,STIFF NECK,NAUSEA Time Seen by Provider: 12/19/19 22:25 Mode of Arrival: Ambulatory Information source: Patient Notes: 39-year-old female presents to ED for complaint of headache that started yesterday. She states right now it is a 4-5. She states it started at 4 PM on Friday. She has been taking ibuprofen but it does not help. She states she has been nausea and vomiting and vomited 3 times today. She states she has had a stiff neck today. She means that both sides of her neck are painful at 2 out of 5. There is no nuchal rigidity. Patient denies any fevers. She does have a history of migraines and coronary artery disease and an DE. She does smoke 5 cigarettes a day does not drink alcohol or use any illicit drugs. She states the last time they gave her some IV medicines and she felt like she was going to come out of her skin and wanted to pull all of her IVs out. I did look on her record and she has had Reglan and Benadryl with IV before. Patient is alert oriented respirations regular nonlabored speaking in full sentences. I have greeted and performed a rapid initial assessment of this patient. A comprehensive ED assessment and evaluation of the patient, analysis of test results and completion of medical decision making process will be conducted by an additional ED providers. TRAVEL OUTSIDE OF THE [place] IN LAST 30 DAYS: No - Related Data Allergies/Adverse Reactions: Penicillins Allergy (Verified 08/10/18 08:48) diphenhydramine [From Benadryl] Adverse Reaction (Intermediate, Verified 12/19/19 22:31) Anxiety Past Medical History - General Information source: Patient - Social History Cigarette use (# per day): Yes - 5 cig Frequency of alcohol use: None Drug Abuse: None Lives with: Friend Family history: None - Past Medical History Cardiac Medical History: Reports: Hx Coronary Artery Disease, Hx Heart Attack - x3 according to patient but no heart cath or medications, Hx Hypercholesterolemia, Hx Hypertension Pulmonary Medical History: Reports: Hx Bronchitis EENT Medical History: Reports: None Neurological Medical History: Reports: Hx Migraine Renal/ Medical History: Reports: Hx Ectopic . Denies: Hx Peritoneal Dialysis Malignancy Medical History: Reports: None GI Medical History: Reports: None, Hx Irritable Bowel Musculoskeltal Medical History: Reports None Skin Medical History: Reports None Psychiatric Medical History: Reports: Hx Anxiety, Hx Bipolar Disorder, Hx Depression, Hx Post Traumatic Stress Disorder Traumatic Medical History: Reports: None Infectious Medical History: Reports: None Past Surgical History: Reports: Hx Gynecologic Surgery - left salpingo- Oophrectomy, Hx Myringotomy - multiple ear surgeries - Immunizations Immunizations up to date: Yes Hx Diphtheria, Pertussis, Tetanus Vaccination: Yes - UTD Physical Exam - Vital signs Vitals: Temp Pulse Resp BP Pulse Ox 98.2 F 98 16 109/72 98 12/19/19 22:25 12/19/19 22:25 12/19/19 22:25 12/19/19 22:25 12/19/19 22:25 Course - Vital Signs Vital signs: Temp Pulse Resp BP Pulse Ox 98.2 F 98 16 109/72 98 12/19/19 22:25 12/19/19 22:25 12/19/19 22:25 12/19/19 22:25 12/19/19 22:25
[2019-12-19 23:12] LABS: ABSOLUTE BASOPHILS # (AUTO) 0.1 10^3/uL (0.0-0.2); ABSOLUTE EOSINOPHILS # (AUTO) 0.7 10^3/uL (0.0-0.6); ABSOLUTE LYMPHOCYTES (AUTO) 3.5 10^3/uL (0.5-4.7); ABSOLUTE MONOCYTES (AUTO) 0.7 10^3/uL (0.1-1.4); ABSOLUTE NEUT (AUTO) 6.9 10^3/uL (1.7-8.2); EOSINOPHILS % (AUTO) 5.5 % (0-6); HEMATOCRIT 38.1 % (36.0-47.0); HEMOGLOBIN 13.4 g/dL (12.0-15.5); LYMPHOCYTES % (AUTO) 29.8 % (13-45); MEAN CORPUSCULAR HGB CONC 35.1 g/dL (32.0-36.0); MEAN CORPUSCULAR VOLUME 91 fl (80-97); MONOCYTES % (AUTO) 5.5 % (3-13); PLATELET COUNT 342 10^3/uL (150-450); RED BLOOD COUNT 4.18 10^6/uL (3.72-5.28); RED CELL DISTRIBUTION WIDTH 13.9 % (11.5-14.0); SEGMENTED NEUTROPHILS % (AUTO) 58.2 % (42-78); TOTAL CELLS COUNTED % (AUTO) 100 %; WHITE BLOOD COUNT 11.9 10^3/uL (4.0-10.5)
[2019-12-19 23:20] LABS: APPEARANCE,URINE SLIGHTLY-CLOUDY; BILIRUBIN,URINE NEGATIVE (NEGATIVE); COLOR,URINE RED; GLUCOSE, URINE NEGATIVE (NEGATIVE); KETONES,URINE NEGATIVE (NEGATIVE); LEUKOCYTE ESTERASE,URINE TRACE (NEGATIVE); NITRITE,URINE POSITIVE (NEGATIVE); PROTEIN,URINE 100 mg/dL (NEGATIVE); URINE SPECIFIC GRAVITY 1.012; UROBILINOGEN,URINE NEGATIVE mg/dL (<2.0)
[2019-12-19 23:33] LABS: ANION GAP 12 (5-19); BLOOD UREA NITROGEN 10 mg/dL (7-20); CALCIUM 9.4 mg/dL (8.4-10.2); CARBON DIOXIDE 24 mmol/L (22-30); CHLORIDE 103 mmol/L (98-107); GLUCOSE 91 mg/dL (75-110); POTASSIUM 3.7 mmol/L (3.6-5.0)
[2019-12-19 23:43] LABS: URINE BARBITURATES SCREEN NEGATIVE; URINE BENZODIAZEPINES SCREEN NEGATIVE; URINE COCAINE SCREEN NEGATIVE; URINE MARIJUANA (THC) SCREEN NEGATIVE; URINE METHADONE SCREEN NEGATIVE; URINE PHENCYCLIDINE SCREEN NEGATIVE
== END 2019-12-20 03:30 | disposition left against medical advice (07) ==
LOC: ER 22:16
DX: R51.9 Headache, unspecified (principal); F17.210 Nicotine dependence, cigarettes, uncomplicated; I25.10 Atherosclerotic heart disease of native coronary artery without angina pectoris; E78.00 Pure hypercholesterolemia, unspecified; I10 Essential (primary) hypertension; I25.2 Old myocardial infarction
CPT/HCPCS: 36415; 80048; 80307; 81001; 84703; 85025; 99281

== ENCOUNTER 2020-01-18 03:23 | Emergency (ER) | payer SELFPAY ==
[2020-01-18 03:49] VITALS: BP 116/77
[2020-01-18] MEDS ORDERED: ACETAMINOPHEN 325 MG TABLET PO ONE (03:49)
== END 2020-01-18 07:05 | disposition left against medical advice (07) ==
LOC: ER 03:23
DX: Z53.21 Procedure and treatment not carried out due to patient leaving prior to being seen by health care provider (principal); H92.23 Otorrhagia, bilateral